=== PATIENT | female | born 1945 | race African-American/Black ===

== ENCOUNTER 2017-10-09 16:41 | Inpatient (IN) | payer MEDICARE ==
[2017-10-09 17:55] LABS: #Basophils 0.1 thou/uL (0.0-0.2); #Eosinphils 0.2 thou/uL (0.0-0.7); #Lymphocytes 2.5 thou/uL (1.20-3.40); #Monocytes 0.6 thou/uL (0.11-0.59); #Neutrophils 4.9 thou/uL (1.40-6.50); %Basophils 0.9 % (0.0-1.0); %Lymphocytes 30.5 % (21.0-51.0); %Monocytes 6.7 % (0.0-10.0); %Neutrophils 59.9 % (42.0-75.0); Hemoglobin 11.8 g/dL (12.0-16.0); Mean Corpuscular HGB CONC 31.8 g/dL (32.0-36.0); Mean Corpuscular Volume 97.5 fl (81.0-99.0); Mean Platelet Volume 7.6 fL (7.4-10.4); Platelet Count 181 thou/uL (130-400); RBC Distribution Width 12.9 % (11.5-14.5); White Blood Cell (WBC) Count 8.2 thou/uL (4.8-10.8)
[2017-10-09 18:00] LABS: INR-International Normal Ratio 1.1; Prothrombin Time 14.5 SEC (12.0-14.7)
--- NOTE | 2017-10-09 18:09 | CT ---
CT HEAD NONCONTRAST 10/09/17 INDICATION: Headache. FINDINGS: There is no evidence of ventriculomegaly, mass effect, midline shift or acute intracranial hemorrhage . IMPRESSION: 1. No acute intracranial abnormality. 2. Minimal chronic microvascular ischemic disease. POS: [facility]
[2017-10-09 18:18] LABS: ALT (SGPT) Less than 7 U/L (8-55); AST (SGOT) 6 U/L (5-34); Albumin 3.2 g/dL (3.4-4.8); Alkaline Phosphatase 111 U/L (40-150); Anion Gap 13 mmol/L (10-20); BUN (Urea Nitrogen) 14 mg/dL (9.8-20.1); Bilirubin, Total 0.6 mg/dL (0.2-1.2); Calc. Creatinine Clearance 0 mL/min (70-130); Calcium 9.4 mg/dL (7.8-10.44); Carbon Dioxide 26 mmol/L (23-31); Chloride 104 mmol/L (98-107); Estimated GFR-MDRD 53; Globulin 2.6 g/dL (2.4-3.5); Glucose 111 mg/dL (83-110); Magnesium 1.5 mg/dL (1.6-2.6); Potassium 3.3 mmol/L (3.5-5.1); Protein, Total 5.8 g/dL (6.0-8.3); Sodium 140 mmol/L (136-145)
[2017-10-09 18:22] LABS: CKMB 0.6 ng/mL (0-6.6)
--- NOTE | 2017-10-09 19:02 | RAD ---
PORTABLE CHEST ONE VIEW 10/09/17 at 6:43 p.m. HISTORY: Hypertension, headache, vision changes. FINDINGS: Comparison is made with exam of 11/24/06. There are changes of median sternotomy. The heart size is borderline. The aorta is tortuous. The lung s are well expanded without focal areas of consolidation, pneumothorax, vero pulmonary edema or pleu ral effusions. IMPRESSION: No radiographic evidence of acute cardiopulmonary process. POS: [facility]
[2017-10-09] MEDS ORDERED: Magnesium Sulfate 2 GM/NS 0.9% 50 ML BAG ONE (19:42)
[2017-10-09] MEDS ORDERED: hydrALAZINE 20 MG/ML VIAL ONE (19:42)
[2017-10-09 20:43] LABS: Bilirubin Negative (Negative); Blood, Urine Negative (Negative); Clarity CLEAR (Clear); Glucose, Urine (Dipstick) Negative (Negative); Leukocyte Trace (Negative); Nitrite Negative (Negative); Protein, Urine (Dipstick) Negative (Neg-Trace); Specific Gravity, Urine 1.015 (1.002-1.036); Urobilinogen 0.2 mg/dL (0.2-1.0); pH, Urine 5.5 (5.0-9.0)
[2017-10-09 20:47] LABS: Bacteria/HPF Rare-Few HPF (None Seen); Hyaline Casts/LPF 0-3 HYALINE CAST LPF (0-3 Hyaline); Pathc Cast-AUWi Flag 0.27 (0-2.49); RBC/HPF 0-3 HPF (0-3); WBC/HPF 0-3 HPF (0-3)
[2017-10-09 21:19] LABS: Troponin I Less than 0.010 ng/mL (< 0.028)
[2017-10-10] MEDS ORDERED: cloNIDine 0.1 MG TAB PO PRN (00:15)
[2017-10-10] MEDS ORDERED: Ondansetron HCl/PF 4 MG/2 ML Vial IVP PRN (00:15)
[2017-10-10] MEDS ORDERED: Calcium Carbonate 500 MG ChewTAB PO PRN (00:15)
[2017-10-10] MEDS ORDERED: Mag-Al 1200 mg/1200 mg/30 ML UDCUP PO PRN (00:15)
[2017-10-10] MEDS ORDERED: Loratadine 10 MG TAB PO PRN (00:15)
[2017-10-10] MEDS ORDERED: Labetalol HCl 100 MG/20 ML VIAL SLOW IVP PRN (00:15)
[2017-10-10] MEDS ORDERED: Benzonatate 100 MG CAP PO PRN (00:15)
[2017-10-10] MEDS ORDERED: Nitroglycerin 0.4 MG TAB (25 Tab Bottle) SL PRN (00:15)
[2017-10-10] MEDS ORDERED: Bisacodyl 5 MG TAB PO PRN ×2 (00:15)
[2017-10-10] MEDS ORDERED: Senokot 8.6 MG TAB PO PRN ×2 (00:15)
[2017-10-10] MEDS ORDERED: Diabetic Tussin 200 MG/10 ML UDCUP PO PRN (00:15)
[2017-10-10] MEDS ORDERED: hydrALAZINE 20 MG/ML VIAL SLOW IVP PRN (00:15)
[2017-10-10] MEDS ORDERED: Acetaminophen 325 MG TAB PO PRN (00:15)
[2017-10-10 00:39] LABS: Troponin I 0.011 ng/mL (< 0.028)
[2017-10-10] MEDS ORDERED: hydrALAZINE 20 MG/ML VIAL ONE (02:11)
[2017-10-10] MEDS ORDERED: HumaLOG 300 UNITS/3 ML VIAL SC PRN ×2 (02:25)
[2017-10-10] MEDS ORDERED: Dextrose 5% in Water 1,000 ML IV PRN (02:25)
[2017-10-10] MEDS ORDERED: Dextrose 50% Abboject 50 ML SYRINGE SLOW IVP PRN (02:25)
[2017-10-10] MEDS ORDERED: Ondansetron HCl/PF 4 MG/2 ML Vial ONE (03:12)
[2017-10-10] MEDS ORDERED: cloNIDine 0.1 MG TAB ONE ×2 (03:24→10:08)
[2017-10-10] MEDS ORDERED: Acetaminophen 325 MG TAB ONE (03:24)
--- NOTE | 2017-10-10 04:05 | HP ---
DATE OF ADMISSION: 10/09/2017 CHIEF COMPLAINT: Altered mental status and hypertensive urgency. PRIMARY CARE PHYSICIAN: Dr. Nay Low at [facility]. HISTORY OF PRESENT ILLNESS: Ms. Stoll is a 72-year-old female who was brought in by family for alte red mental status. History is mainly obtained by the patient, who seems to be at her baseline and aw frieda, alert, oriented x3, on my examination. Electronic medical records had been reviewed. She reports that her blood pressure was running high few days ago and she was evaluated in the emerge ncy room and was discharged probably to [facility]. However, today, she was found to be more confused by the family and was brought in via EMS. She also had some complaints of blurry visio n per the family and unsteady gait. The patient lives alone and had symptoms initially of headache a nd blurry vision and called her neighbor who called EMS. She also remembers her blood pressure was o lai 200. She took Tylenol and blood pressure medications, but that did not help and she was brought into the emergency room. In the emergency room, she was found to have uncontrolled hypertension with blood pressure of 210/110 . She was given medications for that with improvement in her blood pressure and mentation. Further workup included a chest x-ray, which was unremarkable as well as a CT scan of the brain, which was al so negative for any acute stroke. She is now being admitted for further evaluation and rule out stro ke and treatment of hypertensive urgency. Otherwise, the patient denies any other recent illnesses. She denies any chest pain, palpitations, s hortness of breath, nausea, vomiting, diarrhea, abdominal pain. She denies any dysuria, frequency, u rgency. Her EKG and cardiac enzymes in the emergency room today are rather unremarkable. PAST MEDICAL HISTORY: 1. Diabetes mellitus type 2. 2. Dyslipidemia. 3. Hypertension. PAST SURGICAL HISTORY: Patient is unsure. PSYCHIATRIC HISTORY: Anxiety. SOCIAL HISTORY: Lives alone and reports that she is independent with her activities of daily living. No history of drug, tobacco, or alcohol abuse. FAMILY HISTORY: The patient is not able to delineate family history very specifically due to some re sidual confusion; however, she denies anybody having a heart attack or stroke in her family. ALLERGIES: CODEINE and PENICILLIN. HOME MEDICATIONS: Unable. The patient does not remember the medicines and she has not brought her m edications with her. REVIEW OF SYSTEMS: The following complete review of systems was negative, unless otherwise mentioned in the HPI or below: Constitutional: Weight loss or gain, ability to conduct usual activities. Skin: Rash, itching. Eyes: Double vision, pain. ENT/Mouth: Nose bleeding, neck stiffness, pain, tenderness. Cardiovascular: Palpitations, dyspnea on exertion, orthopnea. Respiratory: Shortness of breath, wheezing, cough, hemoptysis, fever or night sweats. Gastrointestinal: Poor appetite, abdominal pain, heartburn, nausea, vomiting, constipation, or diarr hea. Genitourinary: Urgency, frequency, dysuria, nocturia. Musculoskeletal: Pain, swelling. Neurologic/Psychiatric: Anxiety, depression. Allergy/Immunologic: Skin rash, bleeding tendency. LABORATORY DATA: Serum chemistries show potassium of 3.3, serum creatinine 1.21, which was 1.21 in A ugust 2017 as well. Magnesium low at 1.5, serial cardiac enzymes negative x3. TSH is normal. CBC s hows hemoglobin of 11.8, otherwise unremarkable. Gait and analysis with trace leukocyte esterase and squamous epithelial cells. A 12-lead EKG reviewed by myself shows a heart rate of 61 beats per katharine te with premature atrial complexes, otherwise unremarkable. Chest x-ray by my review has no evidence to suggest pleural effusion, edema, or infiltrate. CT scan of the brain has no evidence of acute he morrhage or acute infarction, age appropriate atrial fibrillation by my review. PHYSICAL EXAMINATION: VITAL SIGNS: Upon presentation, blood pressure 165/81, pulse of 63, respirations 17, saturating 99% on room air, temperature 97.9. GENERAL: No acute distress, awake, alert, oriented x2 at very least. She has some confusion, but th en she re-correct herself easily. GENERAL: No acute distress, lying comfortably in bed, able to answer simple questions and follows si mple commands. HEENT: Mucous membrane is moist and pink. No oropharyngeal exudate or erythema. Head is normocepha lic, atraumatic. Pupils are equal, reactive to light and accommodation. Extraocular movements intac t. NECK: Supple without any lymphadenopathy, JVD or bruit. CHEST: Clear to auscultation without any wheezing, rales, or rhonchi. Rate and rhythm is regular wi thout any murmur, rubs, or gallops. ABDOMEN: Soft, nontender, nondistended with positive bowel sounds. EXTREMITIES: Free of any cyanosis, clubbing, or edema. NEUROLOGIC: Nonfocal. SKIN: Free of any rashes or bruises. Feels warm and dry to touch. PSYCHIATRIC: Normal affect. VASCULAR: +2 pedal pulses felt bilaterally. IMPRESSION AND PLAN: 1. Hypertensive urgency. It seems like the patient's blood pressure needs to be reconciled and may adjust it according to her blood pressure. I am not sure which medications she takes at home, but we will be treating her with p.r.n. antihypertensives until we can confirm her home medications. Her b lood pressure is under better control for now, we will monitor closely. Obtain a 2D echocardiogram. 2. Altered mental status. We will obtain an MRI of the brain along with an echocardiogram. Most li [place] her altered mental status is secondary to uncontrolled hypertension. It has resolved for now. She has no neurological abnormalities on examination or on presentation. We will obtain MRI and if i t is abnormal: We will consult Neurology and initiate further Stroke team protocol. At this time, brandon friend will provide her with daily aspirin and check lipid panel as well. 3. Dyslipidemia. Once again, it is unclear what kind of statins if the patient takes it or not. We will try to reconcile her home medications. 4. History of hypertension. Restart home medications as soon as possible. 5. Deep venous thrombosis and gastrointestinal prophylaxis. 6. Code status: FULL CODE. Discussed with the patient. DISPOSITION: The patient is currently being admitted to the hospital for hypertensive urgency and st roke workup. Estimated length of stay is at least 2 to 3 midnight. Further management will depend u feliberto her clinical course.
[2017-10-10 04:23] LABS: Hemoglobin 12.8 g/dL (12.0-16.0); Mean Corpuscular HGB CONC 32.8 g/dL (32.0-36.0); Mean Corpuscular Hemoglobin 31.5 pg (27.0-31.0); Mean Platelet Volume 8.9 fL (7.4-10.4); Platelet Count 132 thou/uL (130-400); RBC Distribution Width 12.9 % (11.5-14.5); Red Blood Cell (RBC) Count 4.06 mill/uL (4.20-5.40); White Blood Cell (WBC) Count 9.5 thou/uL (4.8-10.8)
[2017-10-10 04:52] LABS: Anion Gap 14 mmol/L (10-20); BUN (Urea Nitrogen) 14 mg/dL (9.8-20.1); Calc. Creatinine Clearance 0 mL/min (70-130); Calcium 9.9 mg/dL (7.8-10.44); Carbon Dioxide 24 mmol/L (23-31); Cardiac Risk 2.6 (Less than 4.5); Chloride 104 mmol/L (98-107); Cholesterol 147 mg/dl (< 200 Desired); Estimated GFR-MDRD 53; Glucose 111 mg/dL (83-110); HDL Cholesterol 56 mg/dL (>60 Neg Risk); LDL Cholesterol, Calculated 73 mg/dL; Potassium 3.4 mmol/L (3.5-5.1); Sodium 139 mmol/L (136-145); Triglycerides 90 mg/dL (Less than 150)
[2017-10-10 05:11] LABS: #Eosinphils 0.2 thou/uL (0.0-0.7); #Lymphocytes 3.3 thou/uL (1.20-3.40); #Monocytes 0.7 thou/uL (0.11-0.59); #Neutrophils 5.2 thou/uL (1.40-6.50); %Basophils 0.4 % (0.0-1.0); %Eosinophils 1.9 % (0.0-10.0); %Monocytes 7.8 % (0.0-10.0); %Neutrophils 54.8 % (42.0-75.0)
[2017-10-10] MEDS ORDERED: Famotidine 20 MG TAB PO SCH (09:00)
[2017-10-10] MEDS ORDERED: Enoxaparin Sodium 40 MG/0.4 ML SYRINGE SC SCH (09:00)
[2017-10-10] MEDS ORDERED: Aspirin 325 mg Enteric Coated Tablet PO SCH (09:00)
[2017-10-10] MEDS: 1/2 NS w/KCL 20 mEq 1,000 ML IV SCH ×2 (10:08→17:01)
[2017-10-10 11:42] VITALS: BMI 44.4
[2017-10-10 14:55] VITALS: TEMP 97.5
--- NOTE | 2017-10-10 15:43 | PDOC.PN ---
- Subjective Encounter Start Date: 10/10/17 Encounter Start Time: 15:41 Ms. Stoll was seen today in follow-up. She admits to a mild headache but otherwise ok. - Objective MAR Reviewed: Yes Vital Signs & Weight: Vital Signs (12 hours) Temp Pulse Resp BP BP Pulse Ox 10/10/17 14:55 97.5 F L 63 16 181/80 H 98 10/10/17 13:00 55 L 20 156/69 H 10/10/17 12:35 98.2 F 55 L 18 155/73 H 98 10/10/17 10:12 178/79 H 10/10/17 08:00 98.2 F 62 18 172/76 H 97 I&O: 10/09/17 10/10/17 10/11/17 06:59 06:59 06:59 Intake Total 120 Balance 120 Result Diagrams: 10/10/17 03:54 10/10/17 03:54 Additional Labs: Accuchecks 10/10/17 10/10/17 10:03 06:12 POC Glucose 92 102 Phys Exam - Physical Examination HEENT: PERRLA Respiratory: no wheezing, no rales, no rhonchi, clear to auscultation bilateral Cardiovascular: RRR, no significant murmur Gastrointestinal: soft, non-tender, positive bowel sounds Musculoskeletal: no edema Dx/Plan (1) Hypertension, uncontrolled Code(s): I10 - ESSENTIAL (PRIMARY) HYPERTENSION Status: Acute (2) Diabetes mellitus type 2 in obese Code(s): E11.69 - TYPE 2 DIABETES MELLITUS WITH OTHER SPECIFIED COMPLICATION; E66.9 - OBESITY, UNSPECIFIED Status: Acute (3) Dyslipidemia Code(s): E78.5 - HYPERLIPIDEMIA, UNSPECIFIED Status: Acute - Plan * HTN urgency- this has resolved * She is completely back to baseline. She was able to tell me the date,year, why she is here, and the details of her recent illness. * Will add Amlodipine to her blood pressure regimen, and can discharge home with close follow-up..
[2017-10-10] MEDS ORDERED: Magnesium Oxide 400 MG TAB PO SCH (16:00)
[2017-10-10] MEDS ORDERED: Amlodipine 5 MG TAB PO SCH (16:00)
[2017-10-10 17:22] VITALS: BP 138/75
--- NOTE | 2017-10-11 02:26 | DIS ---
PRIMARY CARE PHYSICIAN: Dr. Low. DATE OF ADMISSION: 10/09/2017 DATE OF DISCHARGE: 10/10/2017 DISCHARGE DISPOSITION: Home. PRIMARY DISCHARGE DIAGNOSES: 1. Hypertensive urgency. 2. Altered mental status secondary to #1. 3. Diabetes mellitus, type 2. 4. Dyslipidemia. 5. Uncontrolled hypertension. DISCHARGE MEDICATIONS: Amlodipine 5 mg p.o. daily was added to the patient's regimen. She is to con tinue Lipitor 20 mg daily, carvedilol 12.5 mg twice a day, escitalopram 10 mg daily, metformin 500 mg twice a day, potassium chloride 10 mEq twice a day, and Xalatan 0.005% to each eye at bedtime. PROCEDURES DONE DURING ADMISSION: The patient had a CT scan of the brain, which was negative for any acute intracranial abnormalities. There was minimal chronic microvascular ischemic disease. HOSPITAL COURSE: Ms. Stoll is a pleasant 72-year-old female who presented to the emergency room wit h altered mental status and elevated blood pressure. She was oriented by the time she got to the ER and in discussion with the patient, she seems to be completely aware of all the events surrounding he r illness, she says she got "sick at home." It sounds like she basically had a bad headache. She dennis s known hypertension, which she knew had been out of control. She had apparently recently tried to s ee her primary care physician, but was seen by someone else, because she had to be worked in due to h er blood pressure and appears that doctor had called in a prescription for clonidine for her. She dennis d never picked up the prescription and instead came to the emergency room. Now when I am seeing her, she is completely at baseline, she does all of her usual activities of daily living and she is the o ne who handles her own medications. I have explained to her that will be adding amlodipine to her [facility] regimen since I do not know the intention that Dr. Suh had for the clonidine that was called in, I told her to hold off on that until she can clarify this with her primary care physician, but t frieda the amlodipine now instead. I suspect that the clonidine was as needed basis, but she was not ab le to verify this with me and did not know the instructions. Therefore, the patient will be discharg ed home on amlodipine and to continue carvedilol as she had previously been taken. Her magnesium was also bit low. She has been given one dose of oral magnesium here, this may need to be continued in the outpatient setting, but in order to prevent confusion with medications being sent to the pharmacy and only prescribing the amlodipine for right now for blood pressure and the magnesium can be addres sed in the outpatient setting, as she is asymptomatic with regard to this.
[2017-10-11] MEDS ORDERED: Magnesium Oxide 400 MG TAB PO SCH (09:00)
[2017-10-11] MEDS ORDERED: Amlodipine 5 MG TAB PO SCH (09:00)
== END 2017-10-10 18:00 | disposition home or self-care (01) | DRG 305 ==
LOC: ERS 16:41 → ERHOLD 20:21 → 2NO 23:04 → 2SE 10-10 13:07
PROVIDERS: ADMIT Internal Medicine; ATTEND Internal Medicine
DX: I16.0 Hypertensive urgency (principal); E11.9 Type 2 diabetes mellitus without complications; Z68.41 Body mass index [BMI] 40.0-44.9, adult; I10 Essential (primary) hypertension; E78.5 Hyperlipidemia, unspecified; E66.9 Obesity, unspecified; F41.9 Anxiety disorder, unspecified
CPT/HCPCS: 36415; 36416; 70450; 71045; 80048; 80053; 80061; 81003; 81015; 82553; 83735; 84443; 84484; 85025; 85610; 93005; J0360; J1650; J2405; J3475; J7050

== ENCOUNTER 2021-02-26 08:43 | Emergency (ER) | payer MEDICARE | END 2021-02-26 11:35 | disposition home or self-care (01) | LOC: ERS 08:43 | DX: L03.115 Cellulitis of right lower limb (principal); Z79.899 Other long term (current) drug therapy; Z79.82 Long term (current) use of aspirin; E11.9 Type 2 diabetes mellitus without complications; E78.5 Hyperlipidemia, unspecified; E78.00 Pure hypercholesterolemia, unspecified; I10 Essential (primary) hypertension; M79.604 Pain in right leg ==

== ENCOUNTER 2021-09-24 07:52 | Emergency (ER) | payer MEDICARE, OTHER ==
[2021-09-24] MEDS ORDERED: Morphine 4 MG/ML VIAL ONE ×3 (08:44→16:43)
[2021-09-24 09:22] LABS: #Eosinphils 0.1 thou/uL (0.0-0.7); #Monocytes 1.9 thou/uL (0.11-0.59); %Eosinophils 0.4 % (0.0-10.0); %Lymphocytes 11.3 % (21.0-51.0); %Monocytes 10.3 % (0.0-10.0); %Neutrophils 77.9 % (42.0-75.0); Hemoglobin 11.8 g/dL (12.0-16.0); Mean Corpuscular HGB CONC 33.4 g/dL (32.0-36.0); Mean Corpuscular Hemoglobin 32.5 pg (27.0-31.0); Mean Corpuscular Volume 97.5 fL (78.0-98.0); Mean Platelet Volume 6.7 fL (7.4-10.4); Platelet Count 206 thou/uL (130-400); RBC Distribution Width 12.7 % (11.5-14.5); Red Blood Cell (RBC) Count 3.61 mill/uL (4.20-5.40)
[2021-09-24 09:49] LABS: ALT (SGPT) 12 U/L (8-55); AST (SGOT) 13 U/L (5-34); Albumin 3.5 g/dL (3.4-4.8); Alkaline Phosphatase 105 U/L (40-110); Anion Gap 15 mmol/L (10-20); BUN (Urea Nitrogen) 11 mg/dL (9.8-20.1); Bilirubin, Total 1.9 mg/dL (0.2-1.2); CK (CPK) 257 U/L (29-168); Calc. Creatinine Clearance 0 mL/min (70-130); Calcium 9.1 mg/dL (7.8-10.44); Carbon Dioxide 20 mmol/L (23-31); Chloride 104 mmol/L (98-107); Globulin 2.4 g/dL (2.4-3.5); Glucose 173 mg/dL (83-110); Potassium 3.3 mmol/L (3.5-5.1); Protein, Total 5.9 g/dL (5.8-8.1); Sodium 136 mmol/L (136-145)
[2021-09-24 10:10] LABS: Bacteria/HPF None Seen HPF (None Seen); Bilirubin Negative (Negative); Blood, Urine 1+ (Negative); Clarity Clear (Clear); Glucose, Urine (Dipstick) 200 mg/dL (Negative); Ketone, Urine Negative (Negative); Leukocyte Negative Leu/uL (Negative); Nitrite Negative (Negative); Protein, Urine (Dipstick) 10 mg/dL (Neg-Trace); RBC/HPF 0-3 HPF (0-3); Specific Gravity, Urine 1.014 (1.002-1.036); Squamous Epithelial None Seen HPF (0-3); Urobilinogen Normal mg/dL (Less than 2); WBC/HPF None Seen HPF (0-3)
[2021-09-24] MEDS ORDERED: Ondansetron PF 4 MG/2 ML Vial ONE (10:14)
[2021-09-24 18:01] LABS: SARS-CoV-2 NAA Rapid Test Not Detected (NotDetected)
== END 2021-09-24 19:46 ==
LOC: ERS 07:52
DX: S82.142A Displaced bicondylar fracture of left tibia, initial encounter for closed fracture (principal); W06.XXXA Fall from bed, initial encounter; Z20.822 Contact with and (suspected) exposure to COVID-19; I10 Essential (primary) hypertension; E11.9 Type 2 diabetes mellitus without complications; E78.5 Hyperlipidemia, unspecified; E78.00 Pure hypercholesterolemia, unspecified; Z79.82 Long term (current) use of aspirin; Z79.899 Other long term (current) drug therapy
CPT/HCPCS: 72170; 73552; 73560; 73610; 73700; 80053; 82550; 84484; 85025; 93005; U0002; 36415; 81003; 81015; 96374; 96375; 96376; J2270; J2405

== ENCOUNTER 2023-09-25 15:41 | Inpatient (IN) | payer MEDICARE, OTHER ==
[2023-09-25] MEDS ORDERED: methylPREDNISolone Sod Succ/PF 125 MG/2 ML VIAL ONE (16:45)
[2023-09-25] MEDS ORDERED: EPINEPHrine 1 MG/ML VIAL ONE (16:45)
[2023-09-25] MEDS ORDERED: diphenhydrAMINE 50 MG/ML VIAL ONE (16:45)
[2023-09-25] MEDS ORDERED: Famotidine/PF 20 mg/2ml Vial ONE (16:45)
[2023-09-25 17:16] LABS: #Eosinphils 0.5 thou/uL (0.0-0.7); #Neutrophils 7.9 thou/uL (1.40-6.50); %Basophils 0.3 % (0.0-1.0); %Eosinophils 3.6 % (0.0-10.0); %Lymphocytes 36.2 % (21.0-51.0); %Monocytes 6.9 % (0.0-10.0); %Neutrophils 52.7 % (42.0-75.0); Hematocrit 35.1 % (36.0-47.0); Mean Corpuscular HGB CONC 31.3 g/dL (32.0-36.0); Mean Corpuscular Hemoglobin 28.4 pg (27.0-31.0); Mean Corpuscular Volume 90.5 fl (78.0-98.0); Mean Platelet Volume 8.5 fL (7.4-10.4); Platelet Count 370 10x3/uL (130-400); RBC Distribution Width 14.9 % (11.5-14.5); Red Blood Cell (RBC) Count 3.88 mill/uL (4.20-5.40); White Blood Cell (WBC) Count 14.9 10x3/uL (4.8-10.8)
[2023-09-25 17:38] LABS: ALT (SGPT) 9 U/L (8-55); AST (SGOT) 13 U/L (5-34); Albumin 3.7 g/dL (3.4-4.8); Alkaline Phosphatase 151 U/L (40-110); Anion Gap 14 mmol/L (10-20); BUN (Urea Nitrogen) 14 mg/dL (9.8-20.1); Bilirubin, Total 0.5 mg/dL (0.2-1.2); Calc. Creatinine Clearance 0 mL/min (70-130); Calcium 8.9 mg/dL (7.8-10.44); Carbon Dioxide 23 mmol/L (23-31); Chloride 102 mmol/L (98-107); Estimated GFR 42; Globulin 2.8 g/dL (2.4-3.5); Glucose 109 mg/dL (83-110); Potassium 3.1 mmol/L (3.5-5.1); Protein, Total 6.5 g/dL (5.8-8.1); Sodium 136 mmol/L (136-145)
[2023-09-25 17:42] LABS: Troponin I Less than 0.010 ng/mL (< 0.028)
[2023-09-25] MEDS ORDERED: Etomidate 40 MG (20 mL) VIAL ONE (19:03)
[2023-09-25] MEDS ORDERED: Rocuronium Bromide 10 MG/ML (10ML VIAL) ONE ×2 (19:04→19:21)
[2023-09-25] MEDS ORDERED: Tranexamic Acid 1,000 MG/10 ML VIAL ONE (19:04)
[2023-09-25] MEDS ORDERED: Propofol 1,000 MG/100 ML VIAL IV ONE (19:34)
[2023-09-25] MEDS ORDERED: Acetaminophen 650 MG Suppository PR PRN (20:37)
[2023-09-25] MEDS ORDERED: Ondansetron ODT 4 MG TAB PO PRN (20:37)
[2023-09-25] MEDS ORDERED: Acetaminophen 325 MG TAB PO PRN (20:37)
[2023-09-25] MEDS ORDERED: Ondansetron PF 4 MG/2 ML Vial IVP PRN (20:37)
[2023-09-25] MEDS ORDERED: Propofol BOLUS 1,000 MG/100 ML VIAL IV PRN (20:45)
[2023-09-25] MEDS ORDERED: DISCONTINUE PREVIOUS NARCOTIC PAIN MEDICATIONS AND BENZODIAZEPINES FS SCH (20:45)
[2023-09-25] MEDS ORDERED: Morphine 2 MG/ML VIAL SLOW IVP PRN (20:45)
[2023-09-25] MEDS ORDERED: Fentanyl BOLUS 250 ML IVPB PRN (20:45)
[2023-09-25] MEDS ORDERED: Ventilator Sedation Protocol 1 EACH FS SCH (20:45)
[2023-09-25] MEDS ORDERED: Lorazepam 2 MG/ML VIAL SLOW IVP PRN (20:45)
[2023-09-25 20:51] LABS: Actual Bicarbonate (HCO3a) 22.6 mEq/L (22-28); Analyzer IN Cardio ER; Base Excess (BEa) 0.2 mEq/L (-2.0 to +3.0); Calcium, Ionized (arterial) 1.11 mmol/L (1.12-1.30); Carboxyhemoglobin (COHb) 0.3 gm% (0.0-3.0); Hematocrit-ABG 36 % (36.0-47.0); Hemoglobin (Hb) 12.3 g/dL (12.0-16.0); O2 Tension (PaO2), arterial 333.8 mmHg (> 70.0); Potassium - ABG Lab 2.82 mmol/L (3.70-5.30); pH, Arterial 7.495 (7.35-7.45)
[2023-09-25 21:24] LABS: Puncture Site LBA
[2023-09-25] MEDS ORDERED: Electrolyte Replacement Protocol 1 EACH FS SCH (21:45)
[2023-09-25] MEDS ORDERED: Dextrose 50% Abboject 50 ML SYRINGE SLOW IVP PRN (21:57)
[2023-09-25] MEDS ORDERED: HumaLOG 300 UNITS/3 ML VIAL SC PRN (21:57)
[2023-09-25] MEDS ORDERED: Dextrose 5% in Water 1,000 ML IV PRN (21:57)
[2023-09-25] MEDS ORDERED: Glucagon 1 MG/ML KIT IM PRN (21:57)
[2023-09-25] MEDS ORDERED: hydrALAZINE 20 MG/ML VIAL SLOW IVP PRN (22:09)
[2023-09-25] MEDS: Potassium Chloride 20 MEQ in Premix 1 BAG IVPB SCH ×2 (22:24→23:30)
[2023-09-25] MEDS: Fentanyl CADD 100 ML IV SCH (23:00)
[2023-09-26 04:43] LABS: #Monocytes 0.1 thou/uL (0.11-0.59); #Neutrophils 12.1 thou/uL (1.40-6.50); %Basophils 0.1 % (0.0-1.0); %Lymphocytes 9.5 % (21.0-51.0); %Monocytes 0.8 % (0.0-10.0); %Neutrophils 89.1 % (42.0-75.0); Hematocrit 34.9 % (36.0-47.0); Hemoglobin 11.2 g/dL (12.0-16.0); Mean Corpuscular HGB CONC 32.1 g/dL (32.0-36.0); Mean Corpuscular Hemoglobin 28.1 pg (27.0-31.0); Platelet Count 372 10x3/uL (130-400); RBC Distribution Width 14.9 % (11.5-14.5); Red Blood Cell (RBC) Count 3.98 mill/uL (4.20-5.40); White Blood Cell (WBC) Count 13.6 10x3/uL (4.8-10.8)
[2023-09-26 04:55] LABS: Mean Corpuscular Volume 87.7 fl (78.0-98.0)
[2023-09-26 05:12] LABS: Anion Gap 14 mmol/L (10-20); BUN (Urea Nitrogen) 14 mg/dL (9.8-20.1); Calc. Creatinine Clearance 62 mL/min (70-130); Carbon Dioxide 24 mmol/L (23-31); Chloride 102 mmol/L (98-107); Estimated GFR 41; Glucose 181 mg/dL (83-110); Potassium 3.7 mmol/L (3.5-5.1); Sodium 136 mmol/L (136-145)
[2023-09-26] MEDS: Propofol 1,000 MG/100 ML VIAL IV PRN ×2 (06:09→16:00)
[2023-09-26] MEDS: diphenhydrAMINE 50 MG/ML VIAL IVP SCH ×2 (08:41→21:38)
[2023-09-26] MEDS: Enoxaparin 40 MG (0.4 mL) SYRINGE SC SCH (08:41)
[2023-09-26] MEDS: Sodium Chloride 0.9% 1,000 ML IV SCH ×3 (08:42→21:43)
[2023-09-26] MEDS: Famotidine/PF 20 mg/2ml Vial SLOW IVP SCH ×2 (08:42→21:38)
[2023-09-26] MEDS ORDERED: methylPREDNISolone Sod Succ 40 MG VIAL IVP SCH (09:00)
[2023-09-26] MEDS: Fentanyl CADD 100 ML IV SCH (16:32)
[2023-09-27] MEDS: Propofol 1,000 MG/100 ML VIAL IV PRN ×2 (00:49→22:52)
[2023-09-27 04:47] LABS: Hemoglobin 10.5 g/dL (12.0-16.0); Mean Corpuscular HGB CONC 31.8 g/dL (32.0-36.0); Mean Corpuscular Hemoglobin 28.2 pg (27.0-31.0); Mean Corpuscular Volume 88.7 fl (78.0-98.0); Mean Platelet Volume 9.1 fL (7.4-10.4); Platelet Count 342 10x3/uL (130-400); RBC Distribution Width 15.5 % (11.5-14.5); Red Blood Cell (RBC) Count 3.72 mill/uL (4.20-5.40); White Blood Cell (WBC) Count 18.7 10x3/uL (4.8-10.8)
[2023-09-27 04:52] LABS: Anion Gap 11 mmol/L (10-20); BUN (Urea Nitrogen) 19 mg/dL (9.8-20.1); Calc. Creatinine Clearance 63 mL/min (70-130); Calcium 8.7 mg/dL (7.8-10.44); Carbon Dioxide 25 mmol/L (23-31); Chloride 106 mmol/L (98-107); Estimated GFR 40; Glucose 139 mg/dL (83-110); Sodium 138 mmol/L (136-145)
[2023-09-27] MEDS: Fentanyl CADD 100 ML IV SCH ×2 (06:25→22:51)
[2023-09-27] MEDS: Dexamethasone 10 MG/ML VIAL SLOW IVP SCH ×2 (08:53→20:09)
[2023-09-27] MEDS: diphenhydrAMINE 50 MG/ML VIAL IVP SCH (08:53)
[2023-09-27] MEDS: Famotidine/PF 20 mg/2ml Vial SLOW IVP SCH ×2 (08:54→20:09)
[2023-09-27] MEDS: Enoxaparin 40 MG (0.4 mL) SYRINGE SC SCH (08:54)
[2023-09-27] MEDS: Sodium Chloride 0.9% 1,000 ML IV SCH ×2 (12:01→20:16)
[2023-09-27] MEDS ORDERED: Amlodipine 10 MG TAB PO SCH (12:30)
[2023-09-27] MEDS ORDERED: Cetirizine HCl 10 MG TAB PO SCH ×2 (13:15→21:00)
[2023-09-27 14:16] LABS: ALT (SGPT) 9 U/L (8-55); AST (SGOT) 27 U/L (5-34); Albumin 3.4 g/dL (3.4-4.8); Alkaline Phosphatase 149 U/L (40-110); Anion Gap 13 mmol/L (10-20); BUN (Urea Nitrogen) 21 mg/dL (9.8-20.1); Bilirubin, Total 0.4 mg/dL (0.2-1.2); CRP (Inflammatory) 0.94 mg/dL (= or < 0.5); Calc. Creatinine Clearance 62 mL/min (70-130); Carbon Dioxide 23 mmol/L (23-31); Chloride 106 mmol/L (98-107); Estimated GFR 39; Globulin 3.2 g/dL (2.4-3.5); Glucose 120 mg/dL (83-110); Potassium 3.7 mmol/L (3.5-5.1); Protein, Total 6.6 g/dL (5.8-8.1); Sodium 138 mmol/L (136-145)
[2023-09-27] MEDS: Enoxaparin 120 MG/0.8 ML SYRINGE SC SCH (20:09)
[2023-09-28] MEDS: Sodium Chloride 0.9% 1,000 ML IV SCH ×2 (05:08→17:24)
[2023-09-28] MEDS: HumaLOG 300 UNITS/3 ML VIAL SC PRN ×3 (05:18→17:42)
[2023-09-28 07:49] LABS: Hematocrit 41.8 % (36.0-47.0); Hemoglobin 12.6 g/dL (12.0-16.0); Mean Corpuscular HGB CONC 30.1 g/dL (32.0-36.0); Mean Corpuscular Hemoglobin 27.8 pg (27.0-31.0); Mean Corpuscular Volume 92.3 fl (78.0-98.0); Mean Platelet Volume 9.3 fL (7.4-10.4); Platelet Count 335 10x3/uL (130-400); RBC Distribution Width 15.4 % (11.5-14.5); Red Blood Cell (RBC) Count 4.53 mill/uL (4.20-5.40); White Blood Cell (WBC) Count 21.9 10x3/uL (4.8-10.8)
[2023-09-28] MEDS: Enoxaparin 120 MG/0.8 ML SYRINGE SC SCH ×2 (08:04→22:19)
[2023-09-28] MEDS: Amlodipine 10 MG TAB PO SCH (08:04)
[2023-09-28] MEDS: Dexamethasone 10 MG/ML VIAL SLOW IVP SCH ×2 (08:05→22:15)
[2023-09-28] MEDS: Famotidine/PF 20 mg/2ml Vial SLOW IVP SCH ×2 (08:05→22:15)
[2023-09-28 08:15] LABS: Anion Gap 14 mmol/L (10-20); BUN (Urea Nitrogen) 23 mg/dL (9.8-20.1); Calc. Creatinine Clearance 71 mL/min (70-130); Calcium 9.1 mg/dL (7.8-10.44); Carbon Dioxide 19 mmol/L (23-31); Chloride 107 mmol/L (98-107); Estimated GFR 45; Glucose 149 mg/dL (83-110); Sodium 136 mmol/L (136-145)
[2023-09-28] MEDS: Propofol 1,000 MG/100 ML VIAL IV PRN (12:20)
[2023-09-28] MEDS: Fentanyl CADD 100 ML IV SCH (15:42)
[2023-09-28] MEDS: Cetirizine HCl 10 MG TAB PO SCH ×2 (17:24→22:15)
[2023-09-29] MEDS: Propofol 1,000 MG/100 ML VIAL IV PRN ×5 (00:52→22:32)
[2023-09-29] MEDS ORDERED: Sodium Chloride 0.9% 500 ML IVPB SCH (04:45)
[2023-09-29] MEDS: Sodium Chloride 0.9% 1,000 ML IV SCH ×5 (04:46→18:44)
[2023-09-29 05:49] LABS: #Monocytes 0.8 thou/uL (0.11-0.59); #Neutrophils 22.3 thou/uL (1.40-6.50); %Basophils 0.1 % (0.0-1.0); %Lymphocytes 2.9 % (21.0-51.0); %Monocytes 3.1 % (0.0-10.0); %Neutrophils 92.7 % (42.0-75.0); Hematocrit 39.8 % (36.0-47.0); Hemoglobin 12.2 g/dL (12.0-16.0); Mean Corpuscular HGB CONC 30.7 g/dL (32.0-36.0); Mean Corpuscular Volume 91.5 fl (78.0-98.0); Mean Platelet Volume 9.4 fL (7.4-10.4); Platelet Count 340 10x3/uL (130-400); RBC Distribution Width 15.5 % (11.5-14.5); Red Blood Cell (RBC) Count 4.35 mill/uL (4.20-5.40); White Blood Cell (WBC) Count 24.1 10x3/uL (4.8-10.8)
[2023-09-29 06:13] LABS: Anion Gap 13 mmol/L (10-20); BUN (Urea Nitrogen) 31 mg/dL (9.8-20.1); Calc. Creatinine Clearance 63 mL/min (70-130); Calcium 8.6 mg/dL (7.8-10.44); Carbon Dioxide 20 mmol/L (23-31); Chloride 108 mmol/L (98-107); Estimated GFR 39; Glucose 230 mg/dL (83-110); Magnesium 2.1 mg/dL (1.6-2.6); Phosphorus 3.1 mg/dL (2.3-4.7); Potassium 3.8 mmol/L (3.5-5.1); Sodium 137 mmol/L (136-145)
[2023-09-29] MEDS: HumaLOG 300 UNITS/3 ML VIAL SC PRN ×3 (06:50→18:16)
[2023-09-29] MEDS ORDERED: Sodium Chloride 0.9% 500 ML IV SCH (08:00)
[2023-09-29] MEDS: Amlodipine 10 MG TAB PO SCH (08:36)
[2023-09-29] MEDS: Cetirizine HCl 10 MG TAB PO SCH ×2 (08:42→21:11)
[2023-09-29] MEDS: Enoxaparin 120 MG/0.8 ML SYRINGE SC SCH ×2 (08:44→21:11)
[2023-09-29] MEDS: Dexamethasone 10 MG/ML VIAL SLOW IVP SCH ×2 (08:45→21:11)
[2023-09-29] MEDS: Famotidine/PF 20 mg/2ml Vial SLOW IVP SCH ×2 (08:45→21:11)
[2023-09-29] MEDS ORDERED: Sodium Chloride 0.9% 1,000 ML IV SCH (10:30)
[2023-09-29] MEDS ORDERED: Albumin 25% 25 GM (100 mL) BOT IVPB SCH ×2 (11:15→15:00)
[2023-09-29 17:56] LABS: #Monocytes 0.9 thou/uL (0.11-0.59); #Neutrophils 17.7 thou/uL (1.40-6.50); %Basophils 0.1 % (0.0-1.0); %Lymphocytes 4.3 % (21.0-51.0); %Monocytes 4.6 % (0.0-10.0); %Neutrophils 89.9 % (42.0-75.0); Hematocrit 31.7 % (36.0-47.0); Hemoglobin 9.8 g/dL (12.0-16.0); Mean Corpuscular HGB CONC 30.9 g/dL (32.0-36.0); Mean Corpuscular Hemoglobin 28.6 pg (27.0-31.0); Mean Corpuscular Volume 92.4 fl (78.0-98.0); Mean Platelet Volume 9.6 fL (7.4-10.4); Platelet Count 280 10x3/uL (130-400); RBC Distribution Width 15.8 % (11.5-14.5); Red Blood Cell (RBC) Count 3.43 mill/uL (4.20-5.40); White Blood Cell (WBC) Count 19.7 10x3/uL (4.8-10.8)
[2023-09-29 18:10] LABS: Bacteria/HPF 3+ HPF (None Seen); Bilirubin Negative (Negative); Blood, Urine 2+ (Negative); CAUTI Indications for Culture Dysuria,urgency,freq; Clarity Turbid (Clear); Glucose, Urine (Dipstick) Normal (Negative); Ketone, Urine Negative (Negative); Leukocyte 500 Leu/uL (Negative); Nitrite Negative (Negative); Protein, Urine (Dipstick) 30 mg/dL (Neg-Trace); RBC/HPF 21-50 HPF (0-3); Specific Gravity, Urine 1.028 (1.002-1.036); Squamous Epithelial 0-3 HPF (0-3); Urobilinogen Normal mg/dL (Less than 2); WBC/HPF Greater than 50 HPF (0-3); pH, Urine 5.5 (5.0-9.0)
[2023-09-29 18:13] LABS: Anion Gap 12 mmol/L (10-20); BUN (Urea Nitrogen) 36 mg/dL (9.8-20.1); Calc. Creatinine Clearance 56 mL/min (70-130); Calcium 8.4 mg/dL (7.8-10.44); Carbon Dioxide 20 mmol/L (23-31); Chloride 110 mmol/L (98-107); Estimated GFR 34; Glucose 172 mg/dL (83-110); Potassium 4.5 mmol/L (3.5-5.1); Sodium 137 mmol/L (136-145)
[2023-09-29 18:16] LABS: Urine Culture Reflex Yes Yes
[2023-09-29] MEDS ORDERED: Furosemide 20 MG (2 mL) VIAL SLOW IVP SCH (18:30)
[2023-09-29] MEDS ORDERED: DEXTROSE 5% IVPB SCH (21:00)
[2023-09-29] MEDS ORDERED: WATER IVPB SCH (21:00)
[2023-09-29] MEDS ORDERED: SULFAMETHOXAZOLE IVPB SCH (21:00)
[2023-09-29] MEDS ORDERED: TRIMETHOPRIM IVPB SCH (21:00)
[2023-09-29] MEDS: cefTRIAXone\\ROCEPHIN 2 GM in Sodium Chloride 0.9% 100 ML IVPB SCH (21:06)
[2023-09-30] MEDS: HumaLOG 300 UNITS/3 ML VIAL SC PRN ×5 (00:47→23:24)
[2023-09-30 04:15] LABS: Hematocrit 30.9 % (36.0-47.0); Hemoglobin 9.5 g/dL (12.0-16.0); Mean Corpuscular HGB CONC 30.7 g/dL (32.0-36.0); Mean Corpuscular Hemoglobin 27.9 pg (27.0-31.0); Mean Corpuscular Volume 90.9 fl (78.0-98.0); Mean Platelet Volume 8.8 fL (7.4-10.4); Platelet Count 273 10x3/uL (130-400); RBC Distribution Width 15.7 % (11.5-14.5); White Blood Cell (WBC) Count 18.8 10x3/uL (4.8-10.8)
[2023-09-30 04:37] LABS: Anion Gap 10 mmol/L (10-20); BUN (Urea Nitrogen) 36 mg/dL (9.8-20.1); Calc. Creatinine Clearance 63 mL/min (70-130); Calcium 8.3 mg/dL (7.8-10.44); Carbon Dioxide 22 mmol/L (23-31); Chloride 111 mmol/L (98-107); Estimated GFR 39; Glucose 181 mg/dL (83-110); Potassium 4.1 mmol/L (3.5-5.1); Sodium 139 mmol/L (136-145)
[2023-09-30] MEDS: Fentanyl CADD 100 ML IV SCH (05:55)
[2023-09-30] MEDS: Propofol 1,000 MG/100 ML VIAL IV PRN ×2 (05:57→17:00)
[2023-09-30] MEDS: Cetirizine HCl 10 MG TAB PO SCH ×2 (09:00→21:28)
[2023-09-30] MEDS: Amlodipine 10 MG TAB PO SCH (09:09)
[2023-09-30] MEDS: Famotidine/PF 20 mg/2ml Vial SLOW IVP SCH ×2 (09:09→21:29)
[2023-09-30] MEDS: Dexamethasone 10 MG/ML VIAL SLOW IVP SCH ×2 (09:09→21:29)
[2023-09-30] MEDS: Enoxaparin 120 MG/0.8 ML SYRINGE SC SCH ×2 (09:10→21:30)
[2023-09-30] MEDS ORDERED: Docusate Sodium 100 MG/10 ML UDCUP PO PRN (12:48)
[2023-09-30] MEDS ORDERED: Docusate Sodium 100 MG/10 ML UDCUP PO SCH (13:00)
[2023-09-30] MEDS ORDERED: Polyethylene Glycol 3350 17 GM Packet PER TUBE SCH (13:00)
[2023-09-30] MEDS: cefTRIAXone\\ROCEPHIN 2 GM in Sodium Chloride 0.9% 100 ML IVPB SCH (20:20)
[2023-10-01] MEDS: Fentanyl CADD 100 ML IV SCH ×2 (00:46→19:53)
[2023-10-01] MEDS: HumaLOG 300 UNITS/3 ML VIAL SC PRN ×4 (04:55→23:25)
[2023-10-01 05:09] LABS: Hematocrit 29.8 % (36.0-47.0); Hemoglobin 9.3 g/dL (12.0-16.0); Mean Corpuscular HGB CONC 31.2 g/dL (32.0-36.0); Mean Corpuscular Hemoglobin 28.4 pg (27.0-31.0); Mean Corpuscular Volume 90.9 fl (78.0-98.0); Platelet Count 271 10x3/uL (130-400); RBC Distribution Width 15.8 % (11.5-14.5); Red Blood Cell (RBC) Count 3.28 mill/uL (4.20-5.40); White Blood Cell (WBC) Count 21.1 10x3/uL (4.8-10.8)
[2023-10-01 05:51] LABS: Anion Gap 13 mmol/L (10-20); BUN (Urea Nitrogen) 41 mg/dL (9.8-20.1); Calc. Creatinine Clearance 68 mL/min (70-130); Calcium 8.2 mg/dL (7.8-10.44); Carbon Dioxide 22 mmol/L (23-31); Chloride 109 mmol/L (98-107); Estimated GFR 40; Glucose 221 mg/dL (83-110); Potassium 5.1 mmol/L (3.5-5.1); Sodium 139 mmol/L (136-145)
[2023-10-01] MEDS: Enoxaparin 120 MG/0.8 ML SYRINGE SC SCH (09:34)
[2023-10-01] MEDS: Amlodipine 10 MG TAB PO SCH (09:35)
[2023-10-01] MEDS: Cetirizine HCl 10 MG TAB PO SCH (09:36)
[2023-10-01] MEDS: Dexamethasone 10 MG/ML VIAL SLOW IVP SCH ×2 (09:36→20:02)
[2023-10-01] MEDS: Famotidine/PF 20 mg/2ml Vial SLOW IVP SCH ×2 (09:36→20:02)
[2023-10-01] MEDS: Propofol 1,000 MG/100 ML VIAL IV PRN ×2 (12:01→23:05)
[2023-10-01] MEDS: cefTRIAXone\\ROCEPHIN 2 GM in Sodium Chloride 0.9% 100 ML IVPB SCH (19:47)
[2023-10-01] MEDS: Enoxaparin 80 MG (0.8 mL) SYRINGE SC SCH (20:01)
[2023-10-02 05:12] LABS: Hematocrit 32.6 % (36.0-47.0); Hemoglobin 10.1 g/dL (12.0-16.0); Mean Corpuscular Hemoglobin 27.9 pg (27.0-31.0); Mean Corpuscular Volume 90.1 fl (78.0-98.0); Mean Platelet Volume 9.6 fL (7.4-10.4); Platelet Count 256 10x3/uL (130-400); RBC Distribution Width 15.8 % (11.5-14.5); Red Blood Cell (RBC) Count 3.62 mill/uL (4.20-5.40); White Blood Cell (WBC) Count 19.6 10x3/uL (4.8-10.8)
[2023-10-02 06:13] LABS: Anion Gap 11 mmol/L (10-20); BUN (Urea Nitrogen) 47 mg/dL (9.8-20.1); Calc. Creatinine Clearance 73 mL/min (70-130); Calcium 8.4 mg/dL (7.8-10.44); Carbon Dioxide 23 mmol/L (23-31); Chloride 107 mmol/L (98-107); Estimated GFR 44; Glucose 253 mg/dL (83-110); Potassium 4.9 mmol/L (3.5-5.1); Sodium 136 mmol/L (136-145)
[2023-10-02] MEDS: Propofol 1,000 MG/100 ML VIAL IV PRN ×3 (07:09→22:04)
[2023-10-02] MEDS: Enoxaparin 80 MG (0.8 mL) SYRINGE SC SCH ×2 (08:29→21:55)
[2023-10-02] MEDS: Famotidine/PF 20 mg/2ml Vial SLOW IVP SCH ×2 (08:30→21:55)
[2023-10-02] MEDS: Dexamethasone 10 MG/ML VIAL SLOW IVP SCH ×2 (08:30→21:55)
[2023-10-02] MEDS: Amlodipine 10 MG TAB PO SCH (08:30)
[2023-10-02] MEDS: HumaLOG 300 UNITS/3 ML VIAL SC PRN ×3 (10:34→22:45)
[2023-10-02] MEDS: Polyethylene Glycol 3350 17 GM Packet PER TUBE PRN (15:44)
[2023-10-02] MEDS: cefTRIAXone\\ROCEPHIN 2 GM in Sodium Chloride 0.9% 100 ML IVPB SCH (19:57)
[2023-10-02] MEDS: Fentanyl CADD 100 ML IV SCH (21:10)
[2023-10-02] MEDS: Cetirizine HCl 10 MG TAB PO SCH (21:55)
[2023-10-03] MEDS ORDERED: Sodium Chloride 0.9% 500 ML IV SCH (01:45)
[2023-10-03] MEDS: Propofol 1,000 MG/100 ML VIAL IV PRN ×2 (03:53→16:00)
[2023-10-03] MEDS: HumaLOG 300 UNITS/3 ML VIAL SC PRN ×5 (03:53→21:58)
[2023-10-03 04:05] LABS: Hematocrit 24.8 % (36.0-47.0); Hemoglobin 7.7 g/dL (12.0-16.0); Mean Corpuscular Volume 90.2 fl (78.0-98.0); Mean Platelet Volume 9.8 fL (7.4-10.4); Platelet Count 290 10x3/uL (130-400); Red Blood Cell (RBC) Count 2.75 mill/uL (4.20-5.40); White Blood Cell (WBC) Count 30.4 10x3/uL (4.8-10.8)
[2023-10-03 04:28] LABS: Anion Gap 12 mmol/L (10-20); BUN (Urea Nitrogen) 57 mg/dL (9.8-20.1); Calc. Creatinine Clearance 69 mL/min (70-130); Calcium 7.9 mg/dL (7.8-10.44); Carbon Dioxide 22 mmol/L (23-31); Chloride 109 mmol/L (98-107); Estimated GFR 40; Glucose 296 mg/dL (83-110); Magnesium 2.8 mg/dL (1.6-2.6); Potassium 5.3 mmol/L (3.5-5.1); Sodium 138 mmol/L (136-145)
[2023-10-03 06:09] LABS: INR-International Normal Ratio 1.2; PTT 28.4 sec (22.9-36.1); Prothrombin Time 15.4 sec (12.0-14.7)
[2023-10-03 06:46] LABS: Bilirubin Negative (Negative); Blood, Urine Large (Negative); Glucose, Urine (Dipstick) Negative (Negative); Ketone, Urine Negative (Negative); Leukocyte Negative (Negative); Nitrite Positive (Negative); Protein, Urine (Dipstick) 100 mg/dL (Neg-Trace); Urobilinogen 0.2 mg/dL (Less than 2)
[2023-10-03 06:51] LABS: Clarity Turbid (Clear); Specific Gravity, Urine 1.025 (1.002-1.036)
[2023-10-03 06:53] LABS: Bacteria/HPF None Seen HPF (None Seen); CAUTI Indications for Culture Acute Hematuria; RBC/HPF Greater than 50 HPF (0-3); Squamous Epithelial 0-3 HPF (0-3); WBC/HPF 0-3 HPF (0-3)
[2023-10-03 06:54] LABS: Urine Culture Reflex No No
[2023-10-03] MEDS: Amlodipine 10 MG TAB PO SCH ×2 (08:56→10:38)
[2023-10-03] MEDS: Famotidine/PF 20 mg/2ml Vial SLOW IVP SCH (08:56)
[2023-10-03] MEDS: Cetirizine HCl 10 MG TAB PO SCH ×2 (09:01→22:01)
[2023-10-03] MEDS: Dexamethasone 10 MG/ML VIAL SLOW IVP SCH ×2 (09:01→22:01)
[2023-10-03] MEDS: Lactated Ringer's 500 ML IV SCH ×2 (09:40→10:15)
[2023-10-03 11:14] LABS: Hematocrit 24.2 % (36.0-47.0); Hemoglobin 7.3 g/dL (12.0-16.0); Manual Diff?? YES; Mean Corpuscular HGB CONC 30.2 g/dL (32.0-36.0); Mean Corpuscular Hemoglobin 28.5 pg (27.0-31.0); Mean Platelet Volume 10.2 fL (7.4-10.4); Platelet Count 284 10x3/uL (130-400); RBC Distribution Width 15.9 % (11.5-14.5); Red Blood Cell (RBC) Count 2.56 mill/uL (4.20-5.40)
[2023-10-03 11:22] LABS: Delete Auto Diff?? YES; White Blood Cell (WBC) Count 44.7 10x3/uL (4.8-10.8)
[2023-10-03 11:30] LABS: Anion Gap 20 mmol/L (10-20); BUN (Urea Nitrogen) 60 mg/dL (9.8-20.1); Calc. Creatinine Clearance 55 mL/min (70-130); Calcium 7.8 mg/dL (7.8-10.44); Carbon Dioxide 14 mmol/L (23-31); Chloride 109 mmol/L (98-107); Estimated GFR 31; Glucose 354 mg/dL (83-110); Potassium 5.5 mmol/L (3.5-5.1); Sodium 137 mmol/L (136-145)
[2023-10-03] MEDS ORDERED: NOREPINEPHRINE 8 MG/250 ML-D5W 250 ML IVPB SCH (11:45)
[2023-10-03] MEDS ORDERED: Meropenem 1 GM in Sodium Chloride 0.9% 100 ML IVPB SCH (11:45)
[2023-10-03 12:31] LABS: Band 1 % (5-11); Burr Cells SLIGHT = 2-5 cells (100X) (0-1/hpf); Lymphocytes 14 % (21-51); Metamyelocyte 1 % (0-0); Monocytes 3 % (0-10); Myelocyte 7 % (0-0); Neutrophil 74 % (42-75); Polychromasia SLIGHT = 2-3 cells (100X) (0-2/hpf)
[2023-10-03] MEDS: Vancomycin HCl 125 MG/5 ML (BATCHED) UDCUP PER TUBE SCH ×2 (12:56→17:30)
[2023-10-03 12:59] LABS: Mean Corpuscular Volume 94.5 fl (78.0-98.0)
[2023-10-03] MEDS ORDERED: NOREPINEPHRINE 8 MG/250 ML-D5W 250 ML ONE (15:44)
[2023-10-03] MEDS: NOREPINEPHRINE 8 MG/250 ML-D5W 250 ML IVPB SCH ×2 (16:00→20:19)
[2023-10-03] MEDS ORDERED: Sodium Polystyrene Sulfonate 15 GM (60 mL) BOT PO SCH (16:15)
[2023-10-03] MEDS ORDERED: Sodium Bicarbonate 150 MEQ in Dextrose 5% in Water 1,000 ML IV SCH ×2 (16:30→21:30)
[2023-10-03 16:34] LABS: Hematocrit 32.5 % (36.0-47.0); Manual Diff?? YES; Mean Corpuscular HGB CONC 32.3 g/dL (32.0-36.0); Mean Corpuscular Hemoglobin 29.2 pg (27.0-31.0); Mean Platelet Volume 10.2 fL (7.4-10.4); Platelet Count 243 10x3/uL (130-400); RBC Distribution Width 15.1 % (11.5-14.5); White Blood Cell (WBC) Count 49.9 10x3/uL (4.8-10.8)
[2023-10-03 16:45] LABS: Delete Auto Diff?? YES; Hemoglobin 10.5 g/dL (12.0-16.0); Mean Corpuscular Volume 90.3 fl (78.0-98.0)
[2023-10-03 17:00] LABS: ALT (SGPT) 23 U/L (8-55); AST (SGOT) 23 U/L (5-34); Albumin 2.8 g/dL (3.4-4.8); Alkaline Phosphatase 94 U/L (40-110); Anion Gap 24 mmol/L (10-20); BUN (Urea Nitrogen) 65 mg/dL (9.8-20.1); Bilirubin, Total 0.5 mg/dL (0.2-1.2); Calc. Creatinine Clearance 44 mL/min (70-130); Calcium 8.1 mg/dL (7.8-10.44); Chloride 108 mmol/L (98-107); Estimated GFR 23; Globulin 2.3 g/dL (2.4-3.5); Glucose 375 mg/dL (83-110); Magnesium 3.5 mg/dL (1.6-2.6); Protein, Total 5.1 g/dL (5.8-8.1); Sodium 135 mmol/L (136-145)
[2023-10-03 17:03] LABS: Band 3 % (5-11); CellaVision Operator ID LAB.KB; Lymphocytes 8 % (21-51); Monocytes 9 % (0-10); Myelocyte 5 % (0-0); Neutrophil 74 % (42-75); Ovalocytes SLIGHT = 2-5 cells HPF (0-1); Platelet Adequacy Comment Platelets Normal; Polychromasia SLIGHT = 2-3 cells HPF (0-2); Reactive Lymphocytes 1 % (0-10); Smudge Cells 10.2 %; Total Cell Count 98
[2023-10-03 17:26] LABS: Carbon Dioxide 9 mmol/L (23-31); Critical Call Chem-Lactate ICU.VW @1726; Critical Call Chemistry ICU.VW @1726; Lactic Acid 11.8 mmol/L (0.5-2.2); Potassium 6.1 mmol/L (3.5-5.1)
[2023-10-03] MEDS: Sodium Bicarb 50 mEq/50 ML VIAL IVP SCH ×2 (17:30→17:35)
[2023-10-03] MEDS ORDERED: Sodium Bicarb 50 mEq/50 ML VIAL ONE ×2 (17:35→19:49)
[2023-10-03] MEDS ORDERED: Insulin Regular 300 UNITS/3 ML VIAL IVP SCH (17:45)
[2023-10-03] MEDS ORDERED: Dextrose 50% Abboject 50 ML SYRINGE SLOW IVP SCH (17:45)
[2023-10-03] MEDS ORDERED: Sodium Bicarb 50 MEQ/50 ML Abboject 8.4% SYRINGE IVP SCH (17:45)
[2023-10-03] MEDS: Vasopressin 20 UNITS in Sodium Chloride 0.9% 50 ML IV SCH (18:52)
[2023-10-03 19:45] LABS: Base Excess (BEa) -17.2 mEq/L (-2.0 to +3.0); CO2 Tension 18.8 mmHg (35.0-45.0); Calcium, Ionized (arterial) 1.08 mmol/L (1.12-1.30); Carboxyhemoglobin (COHb) 0.3 gm% (0.0-3.0); Hematocrit-ABG 31 % (36.0-47.0); Hemoglobin (Hb) 10.7 g/dL (12.0-16.0); O2 Tension (PaO2), arterial 107.3 mmHg (> 70.0); Potassium - ABG Lab 5.56 mmol/L (3.70-5.30); pH, Arterial 7.249 (7.35-7.45)
[2023-10-03 19:46] LABS: Puncture Site LINE
[2023-10-03] MEDS ORDERED: Sodium Bicarb 50 mEq/50 ML VIAL IVP SCH (20:00)
[2023-10-03] MEDS ORDERED: Lactated Ringer's 1,000 ML IV SCH (20:00)
[2023-10-03 20:54] LABS: Hematocrit 23.9 % (36.0-47.0); Hemoglobin 7.9 g/dL (12.0-16.0); Manual Diff?? YES; Mean Corpuscular HGB CONC 33.1 g/dL (32.0-36.0); Mean Corpuscular Hemoglobin 29.4 pg (27.0-31.0); Mean Corpuscular Volume 88.8 fl (78.0-98.0); Mean Platelet Volume 10.3 fL (7.4-10.4); Platelet Count 191 10x3/uL (130-400); RBC Distribution Width 15.4 % (11.5-14.5); Red Blood Cell (RBC) Count 2.69 mill/uL (4.20-5.40); White Blood Cell (WBC) Count 59.7 10x3/uL (4.8-10.8)
[2023-10-03] MEDS ORDERED: Lactulose 20 GM (30 mL) UDCUP PO SCH (21:00)
[2023-10-03 21:01] LABS: Delete Auto Diff?? YES
[2023-10-03 21:25] LABS: ALT (SGPT) 743 U/L (8-55); AST (SGOT) 513 U/L (5-34); Alkaline Phosphatase 79 U/L (40-110); Anion Gap 25 mmol/L (10-20); BUN (Urea Nitrogen) 67 mg/dL (9.8-20.1); Bilirubin, Total 0.4 mg/dL (0.2-1.2); Calc. Creatinine Clearance 42 mL/min (70-130); Calcium 7.2 mg/dL (7.8-10.44); Carbon Dioxide 13 mmol/L (23-31); Chloride 107 mmol/L (98-107); Estimated GFR 23; Globulin 1.7 g/dL (2.4-3.5); Glucose 277 mg/dL (83-110); Potassium 4.7 mmol/L (3.5-5.1); Protein, Total 3.7 g/dL (5.8-8.1); Sodium 140 mmol/L (136-145)
[2023-10-03 21:28] LABS: Band 3 % (5-11); Burr Cells SLIGHT = 2-5 cells HPF (0-1); CellaVision Operator ID lab.abc; Large Platelets 2.9 % (0-5); Lymphocytes 5 % (21-51); Metamyelocyte 5 % (0-0); Monocytes 8 % (0-10); Myelocyte 6 % (0-0); Neutrophil 73 % (42-75); Platelet Adequacy Comment Platelets Normal; Poikilocytosis SLIGHT = 6-15 cells HPF (0-5); Polychromasia SLIGHT = 2-3 cells HPF (0-2); Reactive Lymphocytes 1 % (0-10); Smudge Cells 3.8 %; Total Cell Count 104
[2023-10-03 21:51] LABS: Lactic Acid 14.4 mmol/L (0.5-2.2)
[2023-10-03] MEDS: Meropenem 1 GM in Sodium Chloride 0.9% 100 ML IVPB SCH (21:55)
[2023-10-03] MEDS: Albumin 25% 25 GM (100 mL) BOT IVPB SCH (22:48)
[2023-10-03] MEDS: Sodium Bicarbonate 150 MEQ in Dextrose 5% in Water 1,000 ML IV SCH (23:06)
[2023-10-03 23:47] LABS: INR-International Normal Ratio 1.7; Prothrombin Time 20.2 sec (12.0-14.7)
[2023-10-03 23:48] LABS: PTT 33.3 sec (22.9-36.1)
[2023-10-04] MEDS: NOREPINEPHRINE 8 MG/250 ML-D5W 250 ML IVPB SCH (00:20)
[2023-10-04] MEDS: Vancomycin HCl 125 MG/5 ML (BATCHED) UDCUP PER TUBE SCH ×5 (00:21→16:38)
[2023-10-04] MEDS: Vasopressin 20 UNITS in Sodium Chloride 0.9% 50 ML IV SCH ×3 (00:53→16:34)
[2023-10-04] MEDS: HumaLOG 300 UNITS/3 ML VIAL SC PRN ×6 (00:54→22:34)
[2023-10-04 01:06] LABS: Hematocrit 29.7 % (36.0-47.0); Hemoglobin 9.9 g/dL (12.0-16.0); Manual Diff?? YES; Mean Corpuscular HGB CONC 33.3 g/dL (32.0-36.0); Mean Corpuscular Hemoglobin 28.4 pg (27.0-31.0); Mean Platelet Volume 10.2 fL (7.4-10.4); Platelet Count 173 10x3/uL (130-400); RBC Distribution Width 15.3 % (11.5-14.5); Red Blood Cell (RBC) Count 3.49 mill/uL (4.20-5.40); White Blood Cell (WBC) Count 62.5 10x3/uL (4.8-10.8)
[2023-10-04 01:16] LABS: Mean Corpuscular Volume 85.1 fl (78.0-98.0)
[2023-10-04 01:17] LABS: Delete Auto Diff?? YES
[2023-10-04 01:32] LABS: Anion Gap 25 mmol/L (10-20); BUN (Urea Nitrogen) 66 mg/dL (9.8-20.1); Calc. Creatinine Clearance 40 mL/min (70-130); Calcium 7.5 mg/dL (7.8-10.44); Carbon Dioxide 17 mmol/L (23-31); Chloride 102 mmol/L (98-107); Estimated GFR 21; Glucose 261 mg/dL (83-110); Potassium 5.1 mmol/L (3.5-5.1); Sodium 139 mmol/L (136-145)
[2023-10-04 01:38] LABS: Band 4 % (5-11); Burr Cells SLIGHT = 2-5 cells HPF (0-1); CellaVision Operator ID lab.abc; Eosinophils 1 % (0-10); Lymphocytes 8 % (21-51); Monocytes 9 % (0-10); Myelocyte 3 % (0-0); Neutrophil 75 % (42-75); Platelet Adequacy Comment Platelets Normal; Polychromasia SLIGHT = 2-3 cells HPF (0-2); Total Cell Count 100
[2023-10-04 01:40] LABS: Critical Call Chem-Lactate ICU.RH3@0140; Lactic Acid 11.8 mmol/L (0.5-2.2)
[2023-10-04] MEDS: Propofol 1,000 MG/100 ML VIAL IV PRN ×2 (04:04→16:40)
[2023-10-04] MEDS: Albumin 25% 25 GM (100 mL) BOT IVPB SCH ×3 (04:04→16:38)
[2023-10-04 05:08] LABS: Hematocrit 32.7 % (36.0-47.0); Hemoglobin 11.4 g/dL (12.0-16.0); Manual Diff?? YES; Mean Corpuscular HGB CONC 34.9 g/dL (32.0-36.0); Mean Corpuscular Hemoglobin 28.8 pg (27.0-31.0); Mean Corpuscular Volume 82.6 fl (78.0-98.0); Mean Platelet Volume 10.4 fL (7.4-10.4); Platelet Count 159 10x3/uL (130-400); RBC Distribution Width 14.7 % (11.5-14.5); Red Blood Cell (RBC) Count 3.96 mill/uL (4.20-5.40)
[2023-10-04 05:35] LABS: Delete Auto Diff?? YES
[2023-10-04 06:04] LABS: Critical Call Chem-Lactate ICU.RH3@0603; Lactic Acid 5.9 mmol/L (0.5-2.2)
[2023-10-04 06:06] LABS: ALT (SGPT) 1479 U/L (8-55); AST (SGOT) 1387 U/L (5-34); Albumin 3.3 g/dL (3.4-4.8); Alkaline Phosphatase 85 U/L (40-110); Anion Gap 18 mmol/L (10-20); BUN (Urea Nitrogen) 69 mg/dL (9.8-20.1); Calc. Creatinine Clearance 41 mL/min (70-130); Calcium 7.8 mg/dL (7.8-10.44); Carbon Dioxide 23 mmol/L (23-31); Chloride 101 mmol/L (98-107); Estimated GFR 20; Globulin 1.6 g/dL (2.4-3.5); Glucose 282 mg/dL (83-110); Protein, Total 4.9 g/dL (5.8-8.1); Sodium 137 mmol/L (136-145)
[2023-10-04] MEDS ORDERED: Lactated Ringer's 1,000 ML IV SCH (06:15)
[2023-10-04 06:31] LABS: Band 3 % (5-11); CellaVision Operator ID lab.abc; Lymphocytes 6 % (21-51); Monocytes 10 % (0-10); Myelocyte 1 % (0-0); Neutrophil 80 % (42-75); Platelet Adequacy Comment Platelets Normal; Polychromasia SLIGHT = 2-3 cells HPF (0-2); Smudge Cells 16.8 %; Total Cell Count 101
[2023-10-04] MEDS: Sodium Bicarbonate 150 MEQ in Dextrose 5% in Water 1,000 ML IV SCH (06:31)
[2023-10-04] MEDS: Dexamethasone 10 MG/ML VIAL SLOW IVP SCH (07:44)
[2023-10-04] MEDS: Meropenem 1 GM in Sodium Chloride 0.9% 100 ML IVPB SCH (07:44)
[2023-10-04] MEDS: Cetirizine HCl 10 MG TAB PO SCH (07:45)
[2023-10-04 08:04] LABS: Actual Bicarbonate (HCO3a) 22.4 mEq/L (22-28); Base Excess (BEa) 0.2 mEq/L (-2.0 to +3.0); CO2 Tension 28.4 mmHg (35.0-45.0); Calcium, Ionized (arterial) 1.04 mmol/L (1.12-1.30); Carboxyhemoglobin (COHb) 0.4 gm% (0.0-3.0); Hematocrit-ABG 32 % (36.0-47.0); Hemoglobin (Hb) 10.9 g/dL (12.0-16.0); O2 Tension (PaO2), arterial 87.7 mmHg (> 70.0); Potassium - ABG Lab 4.93 mmol/L (3.70-5.30); pH, Arterial 7.515 (7.35-7.45)
[2023-10-04 08:09] LABS: Puncture Site Arterial Line
[2023-10-04] MEDS ORDERED: Famotidine/PF 20 mg/2ml Vial SLOW IVP SCH (09:00)
[2023-10-04 09:24] LABS: Phosphorus 5.2 mg/dL (2.3-4.7)
[2023-10-04 13:21] LABS: Hematocrit 27.6 % (36.0-47.0); Hemoglobin 9.6 g/dL (12.0-16.0); Manual Diff?? YES; Mean Corpuscular HGB CONC 34.8 g/dL (32.0-36.0); Mean Corpuscular Hemoglobin 28.7 pg (27.0-31.0); Mean Corpuscular Volume 82.6 fl (78.0-98.0); Mean Platelet Volume 10.7 fL (7.4-10.4); Platelet Count 134 10x3/uL (130-400); RBC Distribution Width 15.4 % (11.5-14.5); Red Blood Cell (RBC) Count 3.34 mill/uL (4.20-5.40); White Blood Cell (WBC) Count 49.4 10x3/uL (4.8-10.8)
[2023-10-04 13:24] LABS: Delete Auto Diff?? YES; Platelet Count 134 10x3/uL (130-400)
[2023-10-04 13:43] LABS: INR-International Normal Ratio 1.5; Prothrombin Time 19.2 sec (12.0-14.7)
[2023-10-04 13:44] LABS: PTT 33.1 sec (22.9-36.1)
[2023-10-04 13:45] LABS: ALT (SGPT) 1313 U/L (8-55); AST (SGOT) 1595 U/L (5-34); Albumin 3.9 g/dL (3.4-4.8); Alkaline Phosphatase 74 U/L (40-110); Anion Gap 15 mmol/L (10-20); BUN (Urea Nitrogen) 81 mg/dL (9.8-20.1); Bilirubin, Total 1.2 mg/dL (0.2-1.2); Calc. Creatinine Clearance 36 mL/min (70-130); Calcium 8.2 mg/dL (7.8-10.44); Carbon Dioxide 25 mmol/L (23-31); Chloride 103 mmol/L (98-107); Estimated GFR 17; Fibrinogen 190 mg/dL (253-463); Globulin 1.4 g/dL (2.4-3.5); Glucose 191 mg/dL (83-110); Phosphorus 5.2 mg/dL (2.3-4.7); Potassium 5.2 mmol/L (3.5-5.1); Protein, Total 5.3 g/dL (5.8-8.1); Sodium 138 mmol/L (136-145)
[2023-10-04 13:47] LABS: D-Dimer Test 0.43 *mcg/mL (0.27-0.43)
[2023-10-04 13:49] LABS: Anisocytosis SLIGHT = 6-15 cells HPF (0-5); Band 7 % (5-11); Burr Cells SLIGHT = 2-5 cells HPF (0-1); CellaVision Operator ID LAB.MJL; Large Platelets 0.9 % (0-5); Lymphocytes 12 % (21-51); Metamyelocyte 2 % (0-0); Monocytes 8 % (0-10); Myelocyte 3 % (0-0); Neutrophil 69 % (42-75); Ovalocytes SLIGHT = 2-5 cells HPF (0-1); Platelet Adequacy Comment Platelets Normal; Poikilocytosis SLIGHT = 6-15 cells HPF (0-5); Polychromasia SLIGHT = 2-3 cells HPF (0-2); Total Cell Count 106
[2023-10-04] MEDS ORDERED: Sodium Polystyrene Sulfonate 15 GM (60 mL) BOT PO SCH (14:45)
[2023-10-04 16:21] LABS: Actual Bicarbonate (HCO3a) 23.9 mEq/L (22-28); Base Excess (BEa) 1.9 mEq/L (-2.0 to +3.0); CO2 Tension 28.2 mmHg (35.0-45.0); Calcium, Ionized (arterial) 1.08 mmol/L (1.12-1.30); Carboxyhemoglobin (COHb) 0.3 gm% (0.0-3.0); Hematocrit-ABG 28 % (36.0-47.0); Hemoglobin (Hb) 9.5 g/dL (12.0-16.0); O2 Tension (PaO2), arterial 88.9 mmHg (> 70.0); Potassium - ABG Lab 5.26 mmol/L (3.70-5.30); pH, Arterial 7.546 (7.35-7.45)
[2023-10-04 16:23] LABS: Puncture Site Arterial Line
[2023-10-04 20:06] LABS: Hematocrit 22.4 % (36.0-47.0); Hemoglobin 7.6 g/dL (12.0-16.0); Manual Diff?? YES; Mean Corpuscular HGB CONC 33.9 g/dL (32.0-36.0); Mean Corpuscular Hemoglobin 28.5 pg (27.0-31.0); Mean Corpuscular Volume 83.9 fl (78.0-98.0); Mean Platelet Volume 11.5 fL (7.4-10.4); Platelet Count 117 10x3/uL (130-400); RBC Distribution Width 15.6 % (11.5-14.5); Red Blood Cell (RBC) Count 2.67 mill/uL (4.20-5.40); White Blood Cell (WBC) Count 41.5 10x3/uL (4.8-10.8)
[2023-10-04 20:08] LABS: Delete Auto Diff?? YES
[2023-10-04] MEDS: Meropenem 500 MG in Sodium Chloride 0.9% 100 ML IVPB SCH (20:17)
[2023-10-04 20:21] LABS: INR-International Normal Ratio 1.5; Prothrombin Time 18.7 sec (12.0-14.7)
[2023-10-04 20:22] LABS: PTT 35.5 sec (22.9-36.1)
[2023-10-04 20:31] LABS: Band 5 % (5-11); CellaVision Operator ID LAB.CLH1; Hypochromia SLIGHT = 6-15 cells HPF (0-5); Lymphocytes 19 % (21-51); Metamyelocyte 3 % (0-0); Monocytes 8 % (0-10); Neutrophil 65 % (42-75); Platelet Adequacy Comment Platelets Normal; Polychromasia SLIGHT = 2-3 cells HPF (0-2); Total Cell Count 104
[2023-10-04] MEDS: Dexamethasone 4 mg/ml Vial SLOW IVP SCH (21:41)
[2023-10-04] MEDS: Pantoprazole 40 MG VIAL IVP SCH (21:41)
[2023-10-04] MEDS: Fentanyl CADD 100 ML IV SCH (22:16)
[2023-10-05] MEDS: Vancomycin HCl 125 MG/5 ML (BATCHED) UDCUP PER TUBE SCH ×5 (00:50→23:23)
[2023-10-05 03:19] LABS: Platelet Count 131 10x3/uL (130-400)
[2023-10-05 03:20] LABS: Hematocrit 24.8 % (36.0-47.0); Hemoglobin 8.5 g/dL (12.0-16.0); Manual Diff?? YES; Mean Corpuscular HGB CONC 34.3 g/dL (32.0-36.0); Mean Corpuscular Volume 84.6 fl (78.0-98.0); Mean Platelet Volume 11.1 fL (7.4-10.4); Platelet Count 132 10x3/uL (130-400); RBC Distribution Width 15.2 % (11.5-14.5); Red Blood Cell (RBC) Count 2.93 mill/uL (4.20-5.40); White Blood Cell (WBC) Count 39.5 10x3/uL (4.8-10.8)
[2023-10-05 03:28] LABS: Delete Auto Diff?? YES
[2023-10-05 03:32] LABS: INR-International Normal Ratio 1.3; Prothrombin Time 16.5 sec (12.0-14.7)
[2023-10-05 03:33] LABS: Fibrinogen 200 mg/dL (253-463); PTT 31.8 sec (22.9-36.1)
[2023-10-05 03:36] LABS: D-Dimer Test 0.75 *mcg/mL (0.27-0.43)
[2023-10-05 03:50] LABS: ALT (SGPT) 922 U/L (8-55); AST (SGOT) 799 U/L (5-34); Albumin 3.7 g/dL (3.4-4.8); Alkaline Phosphatase 64 U/L (40-110); Anion Gap 21 mmol/L (10-20); BUN (Urea Nitrogen) 82 mg/dL (9.8-20.1); Calc. Creatinine Clearance 30 mL/min (70-130); Calcium 8.3 mg/dL (7.8-10.44); Carbon Dioxide 20 mmol/L (23-31); Chloride 100 mmol/L (98-107); Estimated GFR 14; Globulin 1.6 g/dL (2.4-3.5); Glucose 177 mg/dL (83-110); Potassium 5.7 mmol/L (3.5-5.1); Protein, Total 5.3 g/dL (5.8-8.1); Sodium 135 mmol/L (136-145)
[2023-10-05 03:57] LABS: Bilirubin, Total 1.3 mg/dL (0.2-1.2)
[2023-10-05 04:25] LABS: Band 11 % (5-11); CellaVision Operator ID LAB.CLH1; Hypochromia SLIGHT = 6-15 cells HPF (0-5); Lymphocytes 4 % (21-51); Monocytes 6 % (0-10); Neutrophil 79 % (42-75); Nucleated RBC (Manual Ct) 2 % (0); Platelet Adequacy Comment Platelets Normal; Polychromasia SLIGHT = 2-3 cells HPF (0-2); Total Cell Count 101
[2023-10-05] MEDS: Vasopressin 20 UNITS in Sodium Chloride 0.9% 50 ML IV SCH (04:52)
[2023-10-05] MEDS: HumaLOG 300 UNITS/3 ML VIAL SC PRN ×4 (05:48→16:19)
[2023-10-05 05:56] LABS: Hematocrit 23.9 % (36.0-47.0); Hemoglobin 8.5 g/dL (12.0-16.0); Manual Diff?? YES; Mean Corpuscular HGB CONC 35.6 g/dL (32.0-36.0); Mean Corpuscular Hemoglobin 29.5 pg (27.0-31.0); Platelet Count 111 10x3/uL (130-400); RBC Distribution Width 14.9 % (11.5-14.5); Red Blood Cell (RBC) Count 2.88 mill/uL (4.20-5.40)
[2023-10-05 05:58] LABS: Delete Auto Diff?? YES
[2023-10-05 06:36] LABS: Band 13 % (5-11); CellaVision Operator ID LAB.CLH1; Hypochromia SLIGHT = 6-15 cells HPF (0-5); Lymphocytes 6 % (21-51); Metamyelocyte 2 % (0-0); Monocytes 6 % (0-10); Neutrophil 69 % (42-75); Nucleated RBC (Manual Ct) 1 % (0); Platelet Adequacy Comment Platelets Decreased; Polychromasia SLIGHT = 2-3 cells HPF (0-2); Promyelocytes 3 % (0-0); Reactive Lymphocytes 1 % (0-10); Total Cell Count 101
[2023-10-05 07:09] LABS: Bacteria/HPF None Seen HPF (None Seen); CAUTI Indications for Culture Acute Hematuria; RBC/HPF Greater than 50 HPF (0-3); Squamous Epithelial 0-3 HPF (0-3); WBC/HPF 0-3 HPF (0-3)
[2023-10-05 07:16] LABS: Bilirubin Negative (Negative); Blood, Urine Large (Negative); Glucose, Urine (Dipstick) 100 mg/dL (Negative); Ketone, Urine Negative (Negative); Leukocyte Negative (Negative); Nitrite Negative (Negative); Protein, Urine (Dipstick) 100 mg/dL (Neg-Trace); Specific Gravity, Urine 1.015 (1.005-1.030); Urobilinogen 0.2 mg/dL (Less than 2); pH, Urine 6.5 (5.0-9.0)
[2023-10-05 07:17] LABS: Clarity Hazy (Clear)
[2023-10-05 07:18] LABS: Urine Culture Reflex No No
[2023-10-05 07:58] LABS: Actual Bicarbonate (HCO3a) 23.1 mEq/L (22-28); Base Excess (BEa) 0.7 mEq/L (-2.0 to +3.0); CO2 Tension 28.6 mmHg (35.0-45.0); Calcium, Ionized (arterial) 1.09 mmol/L (1.12-1.30); Carboxyhemoglobin (COHb) 0.9 gm% (0.0-3.0); Hematocrit-ABG 26 % (36.0-47.0); Hemoglobin (Hb) 8.9 g/dL (12.0-16.0); O2 Tension (PaO2), arterial 80.4 mmHg (> 70.0); Potassium - ABG Lab 5.45 mmol/L (3.70-5.30); pH, Arterial 7.525 (7.35-7.45)
[2023-10-05 08:03] LABS: Puncture Site Arterial Line
[2023-10-05] MEDS: Dexamethasone 4 mg/ml Vial SLOW IVP SCH ×2 (08:46→20:44)
[2023-10-05] MEDS: Meropenem 500 MG in Sodium Chloride 0.9% 100 ML IVPB SCH ×2 (08:47→20:43)
[2023-10-05 12:18] LABS: Hematocrit 25.1 % (36.0-47.0); Hemoglobin 8.7 g/dL (12.0-16.0); Manual Diff?? YES; Mean Corpuscular HGB CONC 34.7 g/dL (32.0-36.0); Mean Corpuscular Hemoglobin 28.8 pg (27.0-31.0); Mean Corpuscular Volume 83.1 fl (78.0-98.0); Mean Platelet Volume 11.7 fL (7.4-10.4); Platelet Count 131 10x3/uL (130-400); RBC Distribution Width 15.4 % (11.5-14.5); Red Blood Cell (RBC) Count 3.02 mill/uL (4.20-5.40); White Blood Cell (WBC) Count 43.5 10x3/uL (4.8-10.8)
[2023-10-05 12:33] LABS: Delete Auto Diff?? YES
[2023-10-05 12:46] LABS: Lactic Acid 3.8 mmol/L (0.5-2.2)
[2023-10-05 13:40] LABS: Band 19 % (5-11); CellaVision Operator ID LAB.GE; Lymphocytes 2 % (21-51); Monocytes 8 % (0-10); Neutrophil 71 % (42-75); Nucleated RBC (Manual Ct) 1 % (0); Platelet Adequacy Comment Platelets Normal; Polychromasia SLIGHT = 2-3 cells HPF (0-2); Total Cell Count 104
[2023-10-05 15:10] LABS: ALT (SGPT) 1016 U/L (8-55); AST (SGOT) 639 U/L (5-34); Albumin 3.8 g/dL (3.4-4.8); Alkaline Phosphatase 75 U/L (40-110); Anion Gap 23 mmol/L (10-20); BUN (Urea Nitrogen) 98 mg/dL (9.8-20.1); Bilirubin, Total 1.3 mg/dL (0.2-1.2); Calc. Creatinine Clearance 26 mL/min (70-130); Calcium 8.5 mg/dL (7.8-10.44); Carbon Dioxide 20 mmol/L (23-31); Chloride 102 mmol/L (98-107); Estimated GFR 12; Globulin 1.5 g/dL (2.4-3.5); Glucose 204 mg/dL (83-110); Potassium 5.6 mmol/L (3.5-5.1); Protein, Total 5.3 g/dL (5.8-8.1); Sodium 139 mmol/L (136-145)
[2023-10-05] MEDS: Pantoprazole 40 MG VIAL IVP SCH (20:43)
[2023-10-06] MEDS: Propofol 1,000 MG/100 ML VIAL IV PRN ×2 (01:17→08:30)
[2023-10-06 04:18] LABS: Hematocrit 22.4 % (36.0-47.0); Hemoglobin 7.8 g/dL (12.0-16.0); Manual Diff?? YES; Mean Corpuscular HGB CONC 34.8 g/dL (32.0-36.0); Mean Corpuscular Hemoglobin 29.7 pg (27.0-31.0); Mean Corpuscular Volume 85.2 fl (78.0-98.0); Mean Platelet Volume 11.8 fL (7.4-10.4); Platelet Count 115 10x3/uL (130-400); RBC Distribution Width 15.8 % (11.5-14.5); Red Blood Cell (RBC) Count 2.63 mill/uL (4.20-5.40); White Blood Cell (WBC) Count 51.8 10x3/uL (4.8-10.8)
[2023-10-06] MEDS: NOREPINEPHRINE 8 MG/250 ML-D5W 250 ML IVPB SCH (04:30)
[2023-10-06 04:40] LABS: ALT (SGPT) 1016 U/L (8-55); AST (SGOT) 424 U/L (5-34); Albumin 3.2 g/dL (3.4-4.8); Alkaline Phosphatase 75 U/L (40-110); Anion Gap 21 mmol/L (10-20); BUN (Urea Nitrogen) 99 mg/dL (9.8-20.1); Bilirubin, Total 0.8 mg/dL (0.2-1.2); Calc. Creatinine Clearance 25 mL/min (70-130); Calcium 8.3 mg/dL (7.8-10.44); Carbon Dioxide 20 mmol/L (23-31); Chloride 103 mmol/L (98-107); Estimated GFR 11; Globulin 1.8 g/dL (2.4-3.5); Glucose 178 mg/dL (83-110); Sodium 138 mmol/L (136-145)
[2023-10-06 04:48] LABS: Delete Auto Diff?? YES
[2023-10-06 05:42] LABS: Band 2 % (5-11); Burr Cells SLIGHT = 2-5 cells HPF (0-1); CellaVision Operator ID LAB.NR; Hypochromia SLIGHT = 6-15 cells HPF (0-5); Lymphocytes 3 % (21-51); Microcytosis SLIGHT = 6-15 cells HPF (0-5); Monocytes 5 % (0-10); Neutrophil 90 % (42-75); Platelet Adequacy Comment Platelets Decreased; Polychromasia SLIGHT = 2-3 cells HPF (0-2); Smudge Cells 5.1 %; Total Cell Count 99
[2023-10-06] MEDS: Vancomycin HCl 125 MG/5 ML (BATCHED) UDCUP PER TUBE SCH (05:53)
[2023-10-06] MEDS ORDERED: Insulin Regular 300 UNITS/3 ML VIAL IVP SCH (06:30)
[2023-10-06] MEDS ORDERED: Dextrose 50% Abboject 50 ML SYRINGE SLOW IVP SCH (06:30)
[2023-10-06] MEDS ORDERED: Sodium Polystyrene Sulfonate 15 GM (60 mL) BOT PO SCH (07:45)
[2023-10-06] MEDS: Meropenem 500 MG in Sodium Chloride 0.9% 100 ML IVPB SCH ×2 (08:30→21:04)
[2023-10-06] MEDS: Polyethylene Glycol 3350 17 GM Packet PER TUBE PRN (08:30)
[2023-10-06] MEDS: HumaLOG 300 UNITS/3 ML VIAL SC PRN ×3 (08:36→15:30)
[2023-10-06] MEDS ORDERED: Heparin 10,000 UNITS/ 10 ML VIAL ONE (08:37)
[2023-10-06] MEDS: predniSONE 20 MG TAB PER TUBE SCH (08:55)
[2023-10-06] MEDS ORDERED: Famotidine/PF 20 mg/2ml Vial SLOW IVP SCH (09:00)
[2023-10-06] MEDS: Fentanyl CADD 100 ML IV SCH (15:45)
[2023-10-06 16:36] LABS: HBSAB Concentration Less than 8.00 mIU/mL; Hep B Core Total Ab Non-Reactive (NonReactive); Hep B Core Total Index 0.09 S/CO (0-0.79); Hep B Surf AB Non-Reactive (NonReactive); Hep B Surf Ag Non-Reactive S/CO (NonReactive)
[2023-10-06 18:42] LABS: Hep C IgG Ab Reflex HepC Qnt S/CO (NonReactive)
[2023-10-06] MEDS: Pantoprazole 40 MG VIAL IVP SCH (21:05)
[2023-10-07] MEDS: NOREPINEPHRINE 8 MG/250 ML-D5W 250 ML IVPB SCH (01:18)
[2023-10-07 04:07] LABS: Hematocrit 21.3 % (36.0-47.0); Hemoglobin 7.1 g/dL (12.0-16.0); Manual Diff?? YES; Mean Corpuscular HGB CONC 33.3 g/dL (32.0-36.0); Mean Corpuscular Hemoglobin 29.5 pg (27.0-31.0); Mean Corpuscular Volume 88.4 fl (78.0-98.0); Mean Platelet Volume 12.1 fL (7.4-10.4); Platelet Count 106 10x3/uL (130-400); RBC Distribution Width 15.6 % (11.5-14.5); Red Blood Cell (RBC) Count 2.41 mill/uL (4.20-5.40)
[2023-10-07 04:13] LABS: Delete Auto Diff?? YES
[2023-10-07 04:29] LABS: ALT (SGPT) 937 U/L (8-55); AST (SGOT) 331 U/L (5-34); Albumin 3.2 g/dL (3.4-4.8); Alkaline Phosphatase 97 U/L (40-110); Anion Gap 18 mmol/L (10-20); BUN (Urea Nitrogen) 103 mg/dL (9.8-20.1); Bilirubin, Total 1.1 mg/dL (0.2-1.2); Calc. Creatinine Clearance 23 mL/min (70-130); Calcium 8.4 mg/dL (7.8-10.44); Carbon Dioxide 25 mmol/L (23-31); Chloride 99 mmol/L (98-107); Estimated GFR 10; Globulin 1.9 g/dL (2.4-3.5); Glucose 145 mg/dL (83-110); Protein, Total 5.1 g/dL (5.8-8.1); Sodium 137 mmol/L (136-145)
[2023-10-07 05:07] LABS: Band 2 % (5-11); CellaVision Operator ID LAB.NR; Hypochromia SLIGHT = 6-15 cells HPF (0-5); Lymphocytes 4 % (21-51); Microcytosis SLIGHT = 6-15 cells HPF (0-5); Monocytes 4 % (0-10); Neutrophil 91 % (42-75); Platelet Adequacy Comment Platelets Decreased; Polychromasia SLIGHT = 2-3 cells HPF (0-2); Total Cell Count 116
[2023-10-07 07:16] LABS: Actual Bicarbonate (HCO3a) 23.6 mEq/L (22-28); Base Excess (BEa) 0.3 mEq/L (-2.0 to +3.0); CO2 Tension 31.8 mmHg (35.0-45.0); Calcium, Ionized (arterial) 1.06 mmol/L (1.12-1.30); Carboxyhemoglobin (COHb) 0.8 gm% (0.0-3.0); Hematocrit-ABG 21 % (36.0-47.0); Hemoglobin (Hb) 7.3 g/dL (12.0-16.0); O2 Tension (PaO2), arterial 87.1 mmHg (> 70.0); Potassium - ABG Lab 4.98 mmol/L (3.70-5.30); pH, Arterial 7.488 (7.35-7.45)
[2023-10-07 07:23] LABS: Puncture Site RRA
[2023-10-07] MEDS: Meropenem 500 MG in Sodium Chloride 0.9% 100 ML IVPB SCH ×2 (08:21→21:38)
[2023-10-07] MEDS: predniSONE 20 MG TAB PER TUBE SCH (08:21)
[2023-10-07] MEDS: Albumin 25% 25 GM (100 mL) BOT IVPB SCH ×2 (11:09→17:51)
[2023-10-07] MEDS: Propofol 1,000 MG/100 ML VIAL IV PRN ×2 (12:36→23:08)
[2023-10-07] MEDS: Pantoprazole 40 MG VIAL IVP SCH (21:39)
[2023-10-08] MEDS: Albumin 25% 25 GM (100 mL) BOT IVPB SCH ×2 (00:48→06:45)
[2023-10-08 05:12] LABS: Hematocrit 19.9 % (36.0-47.0); Hemoglobin 6.6 g/dL (12.0-16.0); Manual Diff?? YES; Mean Corpuscular HGB CONC 33.2 g/dL (32.0-36.0); Mean Corpuscular Hemoglobin 30.1 pg (27.0-31.0); Mean Corpuscular Volume 90.9 fl (78.0-98.0); Mean Platelet Volume 11.2 fL (7.4-10.4); Red Blood Cell (RBC) Count 2.19 mill/uL (4.20-5.40); White Blood Cell (WBC) Count 37.6 10x3/uL (4.8-10.8)
[2023-10-08 05:13] LABS: Delete Auto Diff?? YES; Platelet Count 87 10x3/uL (130-400)
[2023-10-08 05:31] LABS: Band 6 % (5-11); CellaVision Operator ID LAB.CLH1; Eosinophils 1 % (0-10); Hypochromia SLIGHT = 6-15 cells HPF (0-5); Large Platelets 1.9 % (0-5); Lymphocytes 8 % (21-51); Monocytes 4 % (0-10); Neutrophil 82 % (42-75); Platelet Adequacy Comment Platelets Decreased; Polychromasia SLIGHT = 2-3 cells HPF (0-2); Total Cell Count 103
[2023-10-08 05:32] LABS: ALT (SGPT) 522 U/L (8-55); AST (SGOT) 177 U/L (5-34); Albumin 3.4 g/dL (3.4-4.8); Alkaline Phosphatase 72 U/L (40-110); Anion Gap 14 mmol/L (10-20); BUN (Urea Nitrogen) 75 mg/dL (9.8-20.1); Bilirubin, Total 1.5 mg/dL (0.2-1.2); Calc. Creatinine Clearance 29 mL/min (70-130); Calcium 8.3 mg/dL (7.8-10.44); Carbon Dioxide 25 mmol/L (23-31); Chloride 100 mmol/L (98-107); Estimated GFR 13; Globulin 1.6 g/dL (2.4-3.5); Glucose 148 mg/dL (83-110); Potassium 4.1 mmol/L (3.5-5.1); Sodium 135 mmol/L (136-145)
[2023-10-08] MEDS: NOREPINEPHRINE 8 MG/250 ML-D5W 250 ML IVPB SCH ×2 (06:44→08:00)
[2023-10-08 07:32] LABS: Actual Bicarbonate (HCO3a) 24.1 mEq/L (22-28); Base Excess (BEa) 0.5 mEq/L (-2.0 to +3.0); CO2 Tension 34.6 mmHg (35.0-45.0); Calcium, Ionized (arterial) 1.07 mmol/L (1.12-1.30); Carboxyhemoglobin (COHb) 1.1 gm% (0.0-3.0); Hematocrit-ABG 30 % (36.0-47.0); Hemoglobin (Hb) 10.2 g/dL (12.0-16.0); O2 Tension (PaO2), arterial 92.9 mmHg (> 70.0); Potassium - ABG Lab 3.98 mmol/L (3.70-5.30)
[2023-10-08 07:45] LABS: Puncture Site RRA
[2023-10-08] MEDS: Propofol 1,000 MG/100 ML VIAL IV PRN ×2 (08:00→21:28)
[2023-10-08] MEDS: predniSONE 20 MG TAB PER TUBE SCH (08:01)
[2023-10-08] MEDS: Meropenem 500 MG in Sodium Chloride 0.9% 100 ML IVPB SCH ×2 (08:03→20:30)
[2023-10-08] MEDS ORDERED: Heparin 10,000 UNITS/ 10 ML VIAL ONE (08:33)
[2023-10-08] MEDS ORDERED: Heparin 1,000 UNITS/ML VIAL CATH SCH ×2 (10:45)
[2023-10-08] MEDS ORDERED: Heparin 30,000 units/30 ml VIAL CATH SCH ×2 (11:00)
[2023-10-08] MEDS ORDERED: Heparin 10,000 UNITS/ 10 ML VIAL CATH SCH (11:00)
[2023-10-08] MEDS: Heparin 10,000 UNITS/ 10 ML VIAL CATH SCH ×2 (11:05→11:06)
[2023-10-08 16:56] LABS: Glucose 144 mg/dL (83-110)
[2023-10-08 19:44] LABS: Glucose 136 mg/dL (83-110)
[2023-10-08] MEDS: Pantoprazole 40 MG VIAL IVP SCH (20:31)
[2023-10-08 22:30] LABS: Glucose 150 mg/dL (83-110)
[2023-10-09 04:19] LABS: Hematocrit 25.4 % (36.0-47.0); Hemoglobin 8.6 g/dL (12.0-16.0); Manual Diff?? YES; Mean Corpuscular HGB CONC 33.9 g/dL (32.0-36.0); Mean Corpuscular Hemoglobin 29.9 pg (27.0-31.0); Mean Corpuscular Volume 88.2 fl (78.0-98.0); Mean Platelet Volume 11.2 fL (7.4-10.4); RBC Distribution Width 14.9 % (11.5-14.5); Red Blood Cell (RBC) Count 2.88 mill/uL (4.20-5.40)
[2023-10-09 04:20] LABS: Delete Auto Diff?? YES; Platelet Count 65 10x3/uL (130-400)
[2023-10-09 04:39] LABS: Glucose 134 mg/dL (83-110)
[2023-10-09 04:46] LABS: ALT (SGPT) 334 U/L (8-55); AST (SGOT) 143 U/L (5-34); Albumin 3.2 g/dL (3.4-4.8); Alkaline Phosphatase 71 U/L (40-110); Anion Gap 15 mmol/L (10-20); BUN (Urea Nitrogen) 54 mg/dL (9.8-20.1); Bilirubin, Total 1.8 mg/dL (0.2-1.2); Calc. Creatinine Clearance 38 mL/min (70-130); Calcium 8.4 mg/dL (7.8-10.44); Carbon Dioxide 26 mmol/L (23-31); Chloride 100 mmol/L (98-107); Estimated GFR 18; Globulin 1.6 g/dL (2.4-3.5); Glucose 139 mg/dL (83-110); Potassium 3.7 mmol/L (3.5-5.1); Protein, Total 4.8 g/dL (5.8-8.1); Sodium 137 mmol/L (136-145)
[2023-10-09 04:50] LABS: Band 12 % (5-11); CellaVision Operator ID LAB.CLH1; Hypochromia SLIGHT = 6-15 cells HPF (0-5); Lymphocytes 5 % (21-51); Monocytes 2 % (0-10); Neutrophil 81 % (42-75); Platelet Adequacy Comment Platelets Decreased; Polychromasia SLIGHT = 2-3 cells HPF (0-2); Total Cell Count 99
[2023-10-09 07:36] LABS: Actual Bicarbonate (HCO3a) 25.2 mEq/L (22-28); Base Excess (BEa) 1.8 mEq/L (-2.0 to +3.0); Calcium, Ionized (arterial) 1.11 mmol/L (1.12-1.30); Carboxyhemoglobin (COHb) 0.6 gm% (0.0-3.0); Hematocrit-ABG 32 % (36.0-47.0); O2 Tension (PaO2), arterial 100.3 mmHg (> 70.0); Potassium - ABG Lab 3.39 mmol/L (3.70-5.30); pH, Arterial 7.475 (7.35-7.45)
[2023-10-09 07:39] LABS: Puncture Site RRA
[2023-10-09] MEDS: Propofol 1,000 MG/100 ML VIAL IV PRN (08:00)
[2023-10-09] MEDS: Meropenem 500 MG in Sodium Chloride 0.9% 100 ML IVPB SCH (20:43)
[2023-10-09] MEDS: Pantoprazole 40 MG VIAL IVP SCH (20:43)
[2023-10-10 06:50] LABS: Hemoglobin 10.6 g/dL (12.0-16.0); Manual Diff?? YES; Mean Corpuscular HGB CONC 33.1 g/dL (32.0-36.0); Mean Corpuscular Hemoglobin 29.5 pg (27.0-31.0); Mean Corpuscular Volume 89.1 fl (78.0-98.0); Mean Platelet Volume 11.6 fL (7.4-10.4); Red Blood Cell (RBC) Count 3.59 mill/uL (4.20-5.40); White Blood Cell (WBC) Count 33.4 10x3/uL (4.8-10.8)
[2023-10-10 06:51] LABS: Delete Auto Diff?? YES; Platelet Count 58 10x3/uL (130-400)
[2023-10-10 07:10] LABS: ALT (SGPT) 248 U/L (8-55); AST (SGOT) 91 U/L (5-34); Albumin 3.2 g/dL (3.4-4.8); Alkaline Phosphatase 75 U/L (40-110); Anion Gap 17 mmol/L (10-20); BUN (Urea Nitrogen) 71 mg/dL (9.8-20.1); Bilirubin, Total 2.1 mg/dL (0.2-1.2); Calc. Creatinine Clearance 33 mL/min (70-130); Calcium 8.6 mg/dL (7.8-10.44); Carbon Dioxide 22 mmol/L (23-31); Chloride 103 mmol/L (98-107); Estimated GFR 16; Glucose 110 mg/dL (83-110); Potassium 4.1 mmol/L (3.5-5.1); Protein, Total 5.2 g/dL (5.8-8.1); Sodium 138 mmol/L (136-145)
[2023-10-10 07:18] LABS: Anisocytosis SLIGHT = 6-15 cells HPF (0-5); Band 1 % (5-11); CellaVision Operator ID lab.dlt; Lymphocytes 4 % (21-51); Monocytes 6 % (0-10); Neutrophil 89 % (42-75); Platelet Adequacy Comment Platelets Decreased; Poikilocytosis SLIGHT = 6-15 cells HPF (0-5); Polychromasia SLIGHT = 2-3 cells HPF (0-2); Total Cell Count 100
[2023-10-10] MEDS ORDERED: Sterile Water 10 ML VIAL IVP SCH (10:45)
[2023-10-10] MEDS ORDERED: Activase 2 MG VIAL CATH SCH (10:45)
[2023-10-10] MEDS: Pantoprazole 40 MG VIAL IVP SCH (20:05)
[2023-10-10] MEDS: Meropenem 500 MG in Sodium Chloride 0.9% 100 ML IVPB SCH (20:05)
[2023-10-11 00:12] LABS: Hep C PCR-Quant HCV Not Detected IU/mL (.)
[2023-10-11 03:18] LABS: Hematocrit 30.1 % (36.0-47.0); Hemoglobin 9.9 g/dL (12.0-16.0); Manual Diff?? YES; Mean Corpuscular HGB CONC 32.9 g/dL (32.0-36.0); Mean Corpuscular Hemoglobin 30.1 pg (27.0-31.0); Mean Corpuscular Volume 91.5 fl (78.0-98.0); Mean Platelet Volume 11.1 fL (7.4-10.4); RBC Distribution Width 16.5 % (11.5-14.5); Red Blood Cell (RBC) Count 3.29 mill/uL (4.20-5.40); White Blood Cell (WBC) Count 27.5 10x3/uL (4.8-10.8)
[2023-10-11 03:31] LABS: Delete Auto Diff?? YES; Platelet Count 78 10x3/uL (130-400)
[2023-10-11 04:08] LABS: ALT (SGPT) 171 U/L (8-55); AST (SGOT) 54 U/L (5-34); Albumin 3.1 g/dL (3.4-4.8); Alkaline Phosphatase 76 U/L (40-110); Anion Gap 18 mmol/L (10-20); BUN (Urea Nitrogen) 59 mg/dL (9.8-20.1); Bilirubin, Total 2.5 mg/dL (0.2-1.2); Calc. Creatinine Clearance 38 mL/min (70-130); Calcium 8.7 mg/dL (7.8-10.44); Carbon Dioxide 24 mmol/L (23-31); Chloride 103 mmol/L (98-107); Estimated GFR 19; Globulin 2.2 g/dL (2.4-3.5); Glucose 104 mg/dL (83-110); Potassium 3.5 mmol/L (3.5-5.1); Protein, Total 5.3 g/dL (5.8-8.1); Sodium 141 mmol/L (136-145)
[2023-10-11 04:09] LABS: CellaVision Operator ID LAB.CLH1; Eosinophils 1 % (0-10); Hypochromia SLIGHT = 6-15 cells HPF (0-5); Lymphocytes 3 % (21-51); Macrocytosis SLIGHT = 6-15 cells HPF (0-5); Monocytes 4 % (0-10); Neutrophil 91 % (42-75); Platelet Adequacy Comment Platelets Decreased; Polychromasia SLIGHT = 2-3 cells HPF (0-2); Total Cell Count 99
[2023-10-11] MEDS: Pantoprazole 40 MG VIAL IVP SCH (20:34)
[2023-10-12 04:46] LABS: #Basophils 0.1 thou/uL (0.0-0.2); #Eosinphils 0.2 thou/uL (0.0-0.7); #Monocytes 1.5 thou/uL (0.11-0.59); %Basophils 0.2 % (0.0-1.0); %Neutrophils 83.4 % (42.0-75.0); Hematocrit 28.5 % (36.0-47.0); Hemoglobin 9.4 g/dL (12.0-16.0); Mean Corpuscular Hemoglobin 30.3 pg (27.0-31.0); Mean Corpuscular Volume 91.9 fl (78.0-98.0); RBC Distribution Width 16.7 % (11.5-14.5)
[2023-10-12 05:04] LABS: Anion Gap 18 mmol/L (10-20); BUN (Urea Nitrogen) 71 mg/dL (9.8-20.1); Calc. Creatinine Clearance 35 mL/min (70-130); Calcium 8.8 mg/dL (7.8-10.44); Carbon Dioxide 23 mmol/L (23-31); Chloride 103 mmol/L (98-107); Estimated GFR 17; Glucose 155 mg/dL (83-110); Potassium 3.4 mmol/L (3.5-5.1); Sodium 141 mmol/L (136-145)
[2023-10-12 05:10] LABS: Platelet Count 86 10x3/uL (130-400)
[2023-10-12] MEDS ORDERED: Heparin 10,000 UNITS/ 10 ML VIAL ONE (10:14)
[2023-10-12] MEDS ORDERED: Albumin 25% 25 GM (100 mL) BOT IVPB SCH (11:15)
[2023-10-12] MEDS: HumaLOG 300 UNITS/3 ML VIAL SC PRN (21:24)
[2023-10-13 08:37] LABS: #Eosinphils 0.3 thou/uL (0.0-0.7); #Monocytes 1.2 thou/uL (0.11-0.59); #Neutrophils 17.9 thou/uL (1.40-6.50); %Basophils 0.2 % (0.0-1.0); %Eosinophils 1.4 % (0.0-10.0); %Lymphocytes 6.4 % (21.0-51.0); %Monocytes 5.6 % (0.0-10.0); %Neutrophils 83.3 % (42.0-75.0); Hematocrit 27.4 % (36.0-47.0); Hemoglobin 8.7 g/dL (12.0-16.0); Mean Corpuscular HGB CONC 31.8 g/dL (32.0-36.0); Mean Corpuscular Hemoglobin 30.3 pg (27.0-31.0); Mean Corpuscular Volume 95.5 fl (78.0-98.0); Mean Platelet Volume 10.8 fL (7.4-10.4); RBC Distribution Width 17.4 % (11.5-14.5); Red Blood Cell (RBC) Count 2.87 mill/uL (4.20-5.40); White Blood Cell (WBC) Count 21.5 10x3/uL (4.8-10.8)
[2023-10-13 08:52] LABS: Platelet Count 79 10x3/uL (130-400)
[2023-10-13 10:28] LABS: BUN (Urea Nitrogen) 52 mg/dL (9.8-20.1); Calc. Creatinine Clearance 45 mL/min (70-130); Calcium 8.7 mg/dL (7.8-10.44); Carbon Dioxide 17 mmol/L (23-31); Chloride 107 mmol/L (98-107); Estimated GFR 23; Glucose 138 mg/dL (83-110); Magnesium 2.1 mg/dL (1.6-2.6); Phosphorus 3.7 mg/dL (2.3-4.7); Sodium 142 mmol/L (136-145)
[2023-10-13 10:50] LABS: Anion Gap 22 mmol/L (10-20)
[2023-10-13] MEDS: Acetaminophen 650 MG/20.3 ML UDCUP PO PRN ×2 (12:01→17:44)
[2023-10-13] MEDS ORDERED: fentaNYL 50 mcg/mL 1 mL Vial SLOW IVP PRN (18:07)
[2023-10-13] MEDS: Lansoprazole 15 MG/5 ML (BATCHED)UDCUP PER TUBE SCH (21:12)
[2023-10-14] MEDS: Acetaminophen 650 MG/20.3 ML UDCUP PO PRN ×2 (09:51→17:09)
[2023-10-14] MEDS: Lansoprazole 15 MG/5 ML (BATCHED)UDCUP PER TUBE SCH (20:53)
[2023-10-15 05:20] LABS: #Basophils 0.1 thou/uL (0.0-0.2); #Eosinphils 0.3 thou/uL (0.0-0.7); #Monocytes 0.9 thou/uL (0.11-0.59); #Neutrophils 16.9 thou/uL (1.40-6.50); %Basophils 0.3 % (0.0-1.0); %Eosinophils 1.5 % (0.0-10.0); %Lymphocytes 7.7 % (21.0-51.0); %Monocytes 4.6 % (0.0-10.0); %Neutrophils 84.6 % (42.0-75.0); Hematocrit 25.8 % (36.0-47.0); Hemoglobin 8.6 g/dL (12.0-16.0); Mean Corpuscular HGB CONC 33.3 g/dL (32.0-36.0); Mean Corpuscular Hemoglobin 30.8 pg (27.0-31.0); Mean Corpuscular Volume 92.5 fl (78.0-98.0); Mean Platelet Volume 10.8 fL (7.4-10.4); Platelet Count 123 10x3/uL (130-400); Prothrombin Time 13.7 sec (12.0-14.7); Red Blood Cell (RBC) Count 2.79 mill/uL (4.20-5.40); White Blood Cell (WBC) Count 19.9 10x3/uL (4.8-10.8)
[2023-10-15 06:21] VITALS: BP 144/67
[2023-10-15 06:33] LABS: Anion Gap 14 mmol/L (10-20); BUN (Urea Nitrogen) 67 mg/dL (9.8-20.1); Calc. Creatinine Clearance 44 mL/min (70-130); Calcium 8.8 mg/dL (7.8-10.44); Carbon Dioxide 25 mmol/L (23-31); Chloride 106 mmol/L (98-107); Estimated GFR 22; Glucose 152 mg/dL (83-110); Potassium 3.3 mmol/L (3.5-5.1); Sodium 142 mmol/L (136-145)
[2023-10-15] MEDS ORDERED: Potassium Bicarbonate/Cit Ac 20 MEQ TAB PO SCH (09:15)
[2023-10-15] MEDS: Albumin 25% 25 GM (100 mL) BOT IVPB SCH ×2 (11:26→17:46)
[2023-10-15 11:37] VITALS: BMI 55.5
[2023-10-15] MEDS: Lansoprazole 15 MG/5 ML (BATCHED)UDCUP PER TUBE SCH (20:31)
[2023-10-15] MEDS: Acetaminophen 650 MG/20.3 ML UDCUP PO PRN (20:33)
[2023-10-16] MEDS: Albumin 25% 25 GM (100 mL) BOT IVPB SCH ×2 (00:12→06:32)
[2023-10-16 06:20] LABS: Anion Gap 16 mmol/L (10-20); BUN (Urea Nitrogen) 73 mg/dL (9.8-20.1); Calc. Creatinine Clearance 47 mL/min (70-130); Calcium 9.2 mg/dL (7.8-10.44); Carbon Dioxide 21 mmol/L (23-31); Chloride 108 mmol/L (98-107); Estimated GFR 24; Glucose 181 mg/dL (83-110); Potassium 3.9 mmol/L (3.5-5.1); Sodium 141 mmol/L (136-145)
[2023-10-16 08:56] LABS: #Eosinphils 0.3 thou/uL (0.0-0.7); #Neutrophils 18.1 thou/uL (1.40-6.50); %Basophils 0.2 % (0.0-1.0); %Eosinophils 1.2 % (0.0-10.0); %Lymphocytes 7.5 % (21.0-51.0); %Monocytes 4.7 % (0.0-10.0); %Neutrophils 85.8 % (42.0-75.0); Hematocrit 24.6 % (36.0-47.0); Mean Corpuscular HGB CONC 32.5 g/dL (32.0-36.0); Mean Corpuscular Hemoglobin 30.5 pg (27.0-31.0); Mean Corpuscular Volume 93.9 fl (78.0-98.0); Mean Platelet Volume 10.5 fL (7.4-10.4); Platelet Count 144 10x3/uL (130-400); RBC Distribution Width 18.1 % (11.5-14.5); Red Blood Cell (RBC) Count 2.62 mill/uL (4.20-5.40); White Blood Cell (WBC) Count 21.1 10x3/uL (4.8-10.8)
[2023-10-16 13:05] VITALS: TEMP 98.8
== END 2023-10-16 19:20 | DRG 915 ==
LOC: ERS 15:41 → CCU 18:59 → IMCU/EMU 10-13 03:36
PROVIDERS: ADMIT Student in an Organized Health Care Education/Training Program; ATTEND Internal Medicine
PROC: 06HY33Z Insertion of Infusion Device into Lower Vein, Percutaneous Approach (ICD-10-PCS; principal; 2023-09-25)
PROC: 0DH67UZ Insertion of Feeding Device into Stomach, Via Natural or Artificial Opening (ICD-10-PCS; 2023-09-25)
PROC: 4A133R1 Monitoring of Arterial Saturation, Peripheral, Percutaneous Approach (ICD-10-PCS; 2023-09-25)
PROC: 3E033XZ Introduction of Vasopressor into Peripheral Vein, Percutaneous Approach (ICD-10-PCS; 2023-09-25)
PROC: 0BH17EZ Insertion of Endotracheal Airway into Trachea, Via Natural or Artificial Opening (ICD-10-PCS; 2023-09-25)
PROC: 5A1955Z Respiratory Ventilation, Greater than 96 Consecutive Hours (ICD-10-PCS; 2023-09-25)
PROC: 30233J1 Transfusion of Nonautologous Serum Albumin into Peripheral Vein, Percutaneous Approach (ICD-10-PCS; 2023-09-29)
PROC: 03HY32Z Insertion of Monitoring Device into Upper Artery, Percutaneous Approach (ICD-10-PCS; 2023-10-03)
PROC: 4A133B1 Monitoring of Arterial Pressure, Peripheral, Percutaneous Approach (ICD-10-PCS; 2023-10-03)
PROC: 4A133J1 Monitoring of Arterial Pulse, Peripheral, Percutaneous Approach (ICD-10-PCS; 2023-10-03)
PROC: 30233N1 Transfusion of Nonautologous Red Blood Cells into Peripheral Vein, Percutaneous Approach (ICD-10-PCS; 2023-10-03)
PROC: 6A550Z2 Pheresis of Platelets, Single (ICD-10-PCS; 2023-10-04)
PROC: 30233K1 Transfusion of Nonautologous Frozen Plasma into Peripheral Vein, Percutaneous Approach (ICD-10-PCS; 2023-10-05)
PROC: 06HY33Z Insertion of Infusion Device into Lower Vein, Percutaneous Approach (ICD-10-PCS; 2023-10-06)
DX: T78.3XXA Angioneurotic edema, initial encounter (principal); A41.9 Sepsis, unspecified organism; J81.0 Acute pulmonary edema; R57.8 Other shock; R65.21 Severe sepsis with septic shock; K72.00 Acute and subacute hepatic failure without coma; N17.0 Acute kidney failure with tubular necrosis; R57.1 Hypovolemic shock; J96.01 Acute respiratory failure with hypoxia; G93.41 Metabolic encephalopathy; N18.6 End stage renal disease; N39.0 Urinary tract infection, site not specified; Z68.43 Body mass index [BMI] 50.0-59.9, adult; D62 Acute posthemorrhagic anemia; E87.20 Acidosis, unspecified; I12.0 Hypertensive chronic kidney disease with stage 5 chronic kidney disease or end stage renal disease; E78.5 Hyperlipidemia, unspecified; E87.6 Hypokalemia; N18.30 Chronic kidney disease, stage 3 unspecified; E11.22 Type 2 diabetes mellitus with diabetic chronic kidney disease; E66.01 Morbid (severe) obesity due to excess calories; D63.1 Anemia in chronic kidney disease; I25.10 Atherosclerotic heart disease of native coronary artery without angina pectoris; T46.4X5A Adverse effect of angiotensin-converting-enzyme inhibitors, initial encounter; B96.1 Klebsiella pneumoniae [K. pneumoniae] as the cause of diseases classified elsewhere; M79.81 Nontraumatic hematoma of soft tissue; R13.12 Dysphagia, oropharyngeal phase; T80.89XA Other complications following infusion, transfusion and therapeutic injection, initial encounter; E87.5 Hyperkalemia; Z51.5 Encounter for palliative care; Z88.0 Allergy status to penicillin; Z79.899 Other long term (current) drug therapy; Z79.82 Long term (current) use of aspirin; Z88.5 Allergy status to narcotic agent; Z86.718 Personal history of other venous thrombosis and embolism; Z99.2 Dependence on renal dialysis
CPT/HCPCS: 31500; 36415; 36416; 36430; 36556; 36600; 70360; 70450; 71045; 74018; 74176; 76770; 80048; 80053; 81001; 82010; 82805; 82947; 83605; 83735; 83880; 84100; 84478; 84484; 85025; 85027; 85049; 85300; 85362; 85379; 85384; 85610; 85730; 86140; 86160; 86161; 86704; 86850; 86900; 86901; 87040; 87077; 87086; 87186; 87324; 87449; 87522; 90935; 93005; 93306; 93970; 94002; 94003; 96372; 96374; 96375; C9113; G0257; J0171; J0360; J0696; J1100; J1200; J1642; J1644; J1650; J1815; J1940; J2060; J2185; J2272; J2704; J2920; J2930; J2997; J3010; J3480; J3490; J7030; J7050; J7070; J7120; J7512; J7999; P9016; P9035; P9047; P9059; S0028